=== PATIENT | male | born 1965 | race Two or more races ===

== ENCOUNTER 2016-05-31 04:55 | Inpatient (IN) | payer MEDICAID ==
[~2016-05-31] VITALS: Ht 167.6 cm; Wt 61.7 kg
[~2016-05-31 04:55] MED LIST: ASPI81TA27 PO; ASPI81TA69 PO; ATOR40TA52 PO; BISA-13 PO; CLOP75TA41 PO; GLIM4TAB42 PO; LISI10TA6 PO; MET50T; METF-312 PO; METF-316; METO25TA5 PO; OMEP20CA5 PO; PAR20T; SIMV10TA84
[2016-05-31] MEDS ORDERED: MORPHINE SULFATE 4 MG/ML SYRG ONE (05:41)
[2016-05-31] MEDS ORDERED: ONDANSETRON HCL 4 MG/2 ML VIAL ONE (05:42)
[2016-05-31] MEDS ORDERED: SODIUM CHLORIDE 0.9% 1,000 ML IV ONE (06:00)
[2016-05-31] MEDS ORDERED: MORPHINE SULFATE 4 MG/ML SYRG IV ONE (06:00)
[2016-05-31] MEDS ORDERED: ONDANSETRON HCL 4 MG/2 ML VIAL IV ONE (06:00)
[2016-05-31 06:11] LABS: DEFINITIVE VIEW TRANSMISSION; Hematocrit 51.4 % (41.0-53.0); Hemoglobin 16.6 g/dL (13.5-17.5); Mean Corpuscular Hemoglobin 34.8 pg (28.0-32.0); Mean Corpuscular Hgb Conc. 32.3 g/dL (32.0-36.0); Mean Corpuscular Volume 107.6 fL (80.0-100.0); Mean Platelet Volume 10.1 fL (7.4-10.4); Platelet Count (auto) 220 10^3/uL (140-450); Red Cell Distribution Width 13.5 % (11.6-16.0); SUSPECT VIEW TRANSMISSION; White Blood Cell 12.1 10^3/uL (4.4-10.8)
[2016-05-31 06:32] LABS: BUN/Creatinine Ratio 10.6; Bilirubin, Total 1.7 mg/dL (0.2-1.0); Calcium 9.3 mg/dL (8.5-10.1); Magnesium 2.7 mg/dL (1.6-2.6); Potassium 3.4 mmol/L (3.5-5.1); Total Protein 7.9 g/dL (6.4-8.2)
[2016-05-31 06:35] LABS: Metamyelocytes % 0; Myelocytes % 0; Promyelocytes % 0; Reactive Lymphocytes 0
[2016-05-31] MEDS ORDERED: SODIUM CHLORIDE 0.9% 1,000 ML IVB ONE (06:42)
[2016-05-31] MEDS ORDERED: POTASSIUM CHL 10% (20 MEQ/15ML) ORAL SOLN PO ONE (07:00)
[2016-05-31] MEDS ORDERED: SOD CHL 0.9%/ KCL 40MEQ 1,000 ML IV ONE (07:00)
[2016-05-31 08:00] LABS: Urine Blood TRACE /uL (Negative); Urine Color Brown (Yellow); Urine Mucus FEW (None Seen); Urine Nitrite Negative (Negative); Urine RBC 3 /hpf (0 - 3); Urine Squamous Epithelial Cell FEW /hpf (<5); Urine pH 5.5 (5.0-8.0)
[2016-05-31] MEDS ORDERED: PIPERACILLIN-TAZO 4.5GM 100 ML IV ONE (08:00)
[2016-05-31 08:06] LABS: Urine Glucose 4+ mg/dL (Normal)
[2016-05-31 08:07] LABS: Urine Bilirubin Negative (Negative); Urine Ketone 1+ (Negative)
[2016-05-31] MEDS ORDERED: InsuLIN R (HUMAN) 100 UNITS in SODIUM CHL 0.9% 99 ML IV SCH (08:09)
[2016-05-31] MEDS ORDERED: CLINDAMYCIN 900MG IV 50 ML IV ONE (08:15)
[2016-05-31] MEDS ORDERED: POTASSIUM CHL 20MEQ/100ML 200 ML IV PRN (08:15)
[2016-05-31 08:26] LABS: Macrocytosis Moderate; Platelet Estimate Adequate
[2016-05-31] MEDS ORDERED: InsuLIN REG 1unit/0.01ml Soln (100units/ml) IV ONE ×3 (08:30→13:30)
[2016-05-31 08:44] LABS: INR 1.11 (0.9-1.15); Partial Thromboplastin Time 24.2 sec (22.64-33.71); Prothrombin Time 11.4 sec (9.37-12.3)
[2016-05-31 08:51] LABS: Lactic Acid 7.6 mmol/L (0.4-2.0)
[2016-05-31] MEDS ORDERED: PANTOPRAZOLE SODIUM 40 MG/10 ML VIAL IV ONE (09:15)
[2016-05-31 09:16] LABS: REFLEX LACTIC ACID YES OR NO YES
[2016-05-31] MEDS: SODIUM CHLORIDE 0.9% 1,000 ML IV SCH ×5 (09:20→22:39)
[2016-05-31] MEDS: ACCU-CHEK COMFORT CURVE STRIP VI SCH ×14 (09:21→21:59)
[2016-05-31 09:22] LABS: BUN/Creatinine Ratio 14.6; Calcium 7.9 mg/dL (8.5-10.1); Potassium 4.4 mmol/L (3.5-5.1)
[2016-05-31] MEDS ORDERED: LORazepam 2MG/ML-1ML VIAL IV PRN (09:30)
[2016-05-31] MEDS ORDERED: NITROGLYCERIN 0.4 MG SL TAB SL PRN (09:30)
[2016-05-31] MEDS ORDERED: MORPHINE SULF INJ 2 MG/ML SYRINGE 1ML IV PRN (09:30)
[2016-05-31] MEDS: PANTOPRAZOLE SODIUM 40 MG/10 ML VIAL IV SCH (10:00)
[2016-05-31 10:46] LABS: Lactic Acid 9.3 mmol/L (0.4-2.0)
[2016-05-31 11:11] LABS: REFLEX LACTIC ACID YES OR NO YES
[2016-05-31 11:51] LABS: Hematocrit 38.9 % (41.0-53.0); Hemoglobin 12.7 g/dL (13.5-17.5)
[2016-05-31] MEDS ORDERED: SODIUM CHLORIDE 0.9% 1,000 ML IV SCH (12:09)
[2016-05-31] MEDS: PIPERACILLIN-TAZOB 3.375GM 100 ML IV SCH ×2 (12:13→17:49)
[2016-05-31] MEDS: MORPHINE SULF INJ 2 MG/ML SYRINGE 1ML IV PRN ×2 (12:29→21:45)
[2016-05-31] MEDS: PROMETHAZINE HCL 25 MG/ML 1ML IV PRN (12:30)
[2016-05-31] MEDS: CLINDAMYCIN 600MG IV 50 ML IV SCH ×2 (14:00→21:40)
[2016-05-31 14:23] LABS: BUN/Creatinine Ratio 14.8; Calcium 7.4 mg/dL (8.5-10.1); Potassium 4.7 mmol/L (3.5-5.1)
[2016-05-31 14:24] LABS: Lactic Acid 8.7 mmol/L (0.4-2.0)
[2016-05-31 14:37] LABS: REFLEX LACTIC ACID YES OR NO YES
[2016-05-31 18:14] LABS: Hematocrit 38.5 % (41.0-53.0); Hemoglobin 12.7 g/dL (13.5-17.5)
[2016-05-31 22:00] LABS: BUN/Creatinine Ratio 30.3; Calcium 7.2 mg/dL (8.5-10.1); Potassium 4.1 mmol/L (3.5-5.1)
[2016-05-31] MEDS ORDERED: DEXTROSE (50%) 50ML SYRG IV PRN (22:30)
[2016-05-31 23:25] VITALS: BP 129/80
[2016-06-01] VITALS (7 sets, daily range): BP systolic 111–125; BP diastolic 71–77
[2016-06-01 01:21] LABS: Hematocrit 39.9 % (41.0-53.0); Hemoglobin 13.2 g/dL (13.5-17.5)
[2016-06-01] MEDS: MORPHINE SULF INJ 2 MG/ML SYRINGE 1ML IV PRN ×2 (01:52→16:34)
[2016-06-01] MEDS: ACCU-CHEK COMFORT CURVE STRIP VI SCH ×6 (04:00→20:12)
[2016-06-01] MEDS: InsuLIN REG 1unit/0.01ml Soln (100units/ml) SC SCH ×6 (04:00→20:22)
[2016-06-01] MEDS: PROMETHAZINE HCL 25 MG/ML 1ML IV PRN (04:34)
[2016-06-01] MEDS: CLINDAMYCIN 600MG IV 50 ML IV SCH ×3 (06:12→22:13)
[2016-06-01 06:15] LABS: DEFINITIVE VIEW TRANSMISSION; Hematocrit 40.4 % (41.0-53.0); Hemoglobin 13.3 g/dL (13.5-17.5); Mean Corpuscular Hemoglobin 35.5 pg (28.0-32.0); Mean Corpuscular Volume 107.7 fL (80.0-100.0); Mean Platelet Volume 9.5 fL (7.4-10.4); Platelet Count (auto) 120 10^3/uL (140-450); Red Cell Distribution Width 13.9 % (11.6-16.0); SUSPECT VIEW TRANSMISSION; White Blood Cell 5.2 10^3/uL (4.4-10.8)
[2016-06-01 06:24] LABS: INR 1.12 (0.9-1.15); Partial Thromboplastin Time 27.4 sec (22.64-33.71); Prothrombin Time 11.5 sec (9.37-12.3)
[2016-06-01 06:40] LABS: Myelocytes % 0; Promyelocytes % 0; Reactive Lymphocytes 0
[2016-06-01 06:54] LABS: Albumin 2.7 g/dL (3.4-5.0); BUN/Creatinine Ratio 30.4; Bilirubin, Total 0.7 mg/dL (0.2-1.0); Calcium 7.6 mg/dL (8.5-10.1); Potassium 3.8 mmol/L (3.5-5.1); Total Protein 6.1 g/dL (6.4-8.2)
[2016-06-01 07:51] LABS: Metamyelocytes % 1; Platelet Estimate Decreased
[2016-06-01 07:52] LABS: Macrocytosis Moderate
[2016-06-01] MEDS: PIPERACILLIN-TAZOB 3.375GM 100 ML IV SCH ×4 (08:17→18:02)
[2016-06-01] MEDS: SODIUM CHLORIDE 0.9% 1,000 ML IV SCH ×2 (08:38→18:07)
[2016-06-01] MEDS: MORPHINE SULFATE 4 MG/ML SYRG IV PRN ×3 (08:40→20:11)
[2016-06-01] MEDS: PANTOPRAZOLE SODIUM 40 MG/10 ML VIAL IV SCH (09:49)
[2016-06-01] MEDS ORDERED: BENZOCAINE (DENTAL) 20 % SPRAY 60ML MT ONE (15:30)
[2016-06-01] MEDS ORDERED: BACITRACIN TOP OINT 1 UD PKG TOP ONE (19:00)
[2016-06-02] MEDS: PIPERACILLIN-TAZOB 3.375GM 100 ML IV SCH ×5 (00:08→23:33)
[2016-06-02] MEDS: ACCU-CHEK COMFORT CURVE STRIP VI SCH ×7 (00:16→23:43)
[2016-06-02] MEDS: InsuLIN REG 1unit/0.01ml Soln (100units/ml) SC SCH ×7 (00:20→23:43)
[2016-06-02] MEDS: MORPHINE SULF INJ 2 MG/ML SYRINGE 1ML IV PRN ×6 (00:22→23:42)
[2016-06-02] MEDS: SODIUM CHLORIDE 0.9% 1,000 ML IV SCH ×2 (04:30→14:30)
[2016-06-02 05:03] VITALS: BP 144/85
[2016-06-02] MEDS: CLINDAMYCIN 600MG IV 50 ML IV SCH ×3 (05:18→21:32)
[2016-06-02 08:30] VITALS: BP 124/82
[2016-06-02] MEDS: PANTOPRAZOLE SODIUM 40 MG/10 ML VIAL IV SCH (09:34)
[2016-06-02 10:05] LABS: DEFINITIVE VIEW TRANSMISSION; Hematocrit 37.8 % (41.0-53.0); Hemoglobin 12.2 g/dL (13.5-17.5); Mean Corpuscular Hemoglobin 34.9 pg (28.0-32.0); Mean Corpuscular Hgb Conc. 32.3 g/dL (32.0-36.0); Mean Platelet Volume 9.7 fL (7.4-10.4); Platelet Count (auto) 102 10^3/uL (140-450); Red Cell Distribution Width 13.9 % (11.6-16.0); SUSPECT VIEW TRANSMISSION; White Blood Cell 6.5 10^3/uL (4.4-10.8)
[2016-06-02 10:27] LABS: Albumin 2.3 g/dL (3.4-5.0); BUN/Creatinine Ratio 28.6; Bilirubin, Total 0.6 mg/dL (0.2-1.0); Calcium 7.7 mg/dL (8.5-10.1); Potassium 3.8 mmol/L (3.5-5.1); Total Protein 5.8 g/dL (6.4-8.2)
[2016-06-02 10:45] LABS: Metamyelocytes % 0; Myelocytes % 0; Promyelocytes % 0; Reactive Lymphocytes 0
[2016-06-02 11:55] LABS: Macrocytosis Moderate; Platelet Estimate Decreased
[2016-06-02 13:00] VITALS: BP 108/72
[2016-06-02] MEDS: BACITRACIN TOP OINT 1 UD PKG TOP SCH (16:04)
[2016-06-02 16:30] VITALS: BP 131/78
[2016-06-02 20:00] VITALS: BP 112/71
[2016-06-02] MEDS: MORPHINE SULFATE 4 MG/ML SYRG IV PRN (20:24)
[2016-06-02 21:55] VITALS: BP 112/71
[2016-06-03] MEDS: SODIUM CHLORIDE 0.9% 1,000 ML IV SCH ×3 (00:30→20:23)
[2016-06-03] MEDS: ACCU-CHEK COMFORT CURVE STRIP VI SCH ×6 (03:57→23:42)
[2016-06-03] MEDS: InsuLIN REG 1unit/0.01ml Soln (100units/ml) SC SCH ×6 (03:59→23:43)
[2016-06-03] MEDS: MORPHINE SULF INJ 2 MG/ML SYRINGE 1ML IV PRN ×2 (04:46→08:49)
[2016-06-03 05:00] VITALS: BP 125/82
[2016-06-03] MEDS: CLINDAMYCIN 600MG IV 50 ML IV SCH ×3 (05:32→22:25)
[2016-06-03] MEDS: PIPERACILLIN-TAZOB 3.375GM 100 ML IV SCH ×4 (06:20→23:42)
[2016-06-03 07:29] VITALS: BP 131/83
[2016-06-03] MEDS: PANTOPRAZOLE SODIUM 40 MG/10 ML VIAL IV SCH (10:13)
[2016-06-03] MEDS: BACITRACIN TOP OINT 1 UD PKG TOP SCH (10:13)
[2016-06-03 11:39] VITALS: BP 125/84
[2016-06-03] MEDS: MORPHINE SULFATE 4 MG/ML SYRG IV PRN ×2 (14:57→19:42)
[2016-06-03 16:00] VITALS: BP 119/77
[2016-06-03 19:50] VITALS: BP 116/76
[2016-06-03 21:59] VITALS: BP 116/76
[2016-06-04] MEDS: MORPHINE SULFATE 4 MG/ML SYRG IV PRN ×3 (00:31→20:04)
[2016-06-04] MEDS: ACCU-CHEK COMFORT CURVE STRIP VI SCH ×5 (04:01→19:54)
[2016-06-04] MEDS: InsuLIN REG 1unit/0.01ml Soln (100units/ml) SC SCH ×5 (04:03→19:54)
[2016-06-04 04:49] VITALS: BP 123/71
[2016-06-04] MEDS: CLINDAMYCIN 600MG IV 50 ML IV SCH ×3 (05:44→21:37)
[2016-06-04] MEDS: SODIUM CHLORIDE 0.9% 1,000 ML IV SCH ×2 (05:45→18:10)
[2016-06-04] MEDS: PIPERACILLIN-TAZOB 3.375GM 100 ML IV SCH ×4 (05:45→23:57)
[2016-06-04 07:21] VITALS: BP 92/64
[2016-06-04] MEDS: BACITRACIN TOP OINT 1 UD PKG TOP SCH (08:57)
[2016-06-04] MEDS: PANTOPRAZOLE SODIUM 40 MG/10 ML VIAL IV SCH (08:57)
[2016-06-04 13:10] VITALS: BP 109/70
[2016-06-04 16:16] VITALS: BP 90/57
[2016-06-04 19:50] VITALS: BP 97/62
[2016-06-04 22:00] VITALS: BP 97/62
[2016-06-05] MEDS: ACCU-CHEK COMFORT CURVE STRIP VI SCH ×5 (00:08→22:06)
[2016-06-05] MEDS: InsuLIN REG 1unit/0.01ml Soln (100units/ml) SC SCH ×6 (00:08→22:58)
[2016-06-05] MEDS: SODIUM CHLORIDE 0.9% 1,000 ML IV SCH ×3 (03:29→23:00)
[2016-06-05 05:00] VITALS: BP 106/65
[2016-06-05] MEDS: CLINDAMYCIN 600MG IV 50 ML IV SCH ×3 (05:52→22:05)
[2016-06-05] MEDS: PIPERACILLIN-TAZOB 3.375GM 100 ML IV SCH ×4 (05:53→23:34)
[2016-06-05 09:00] VITALS: BP 102/65
[2016-06-05] MEDS: PANTOPRAZOLE SODIUM 40 MG/10 ML VIAL IV SCH (09:25)
[2016-06-05] MEDS: BACITRACIN TOP OINT 1 UD PKG TOP SCH (09:25)
[2016-06-05 13:51] VITALS: BP 93/65
[2016-06-05 16:18] VITALS: BP 93/60
[2016-06-05 20:00] VITALS: BP 104/63
[2016-06-05 20:25] LABS: Basophils # (auto) 0 uL; Basophils % (auto) 0.2 % (0.0-2.0); DEFINITIVE VIEW TRANSMISSION; Eosinophils # (auto) 0.1 uL; Eosinophils % (auto) 0.6 % (0.0-7.0); Hematocrit 39.8 % (41.0-53.0); Hemoglobin 12.8 g/dL (13.5-17.5); Lymphocytes # (auto) 0.6 uL; Lymphocytes % (auto) 5.6 % (10.0-50.0); Mean Corpuscular Hemoglobin 34.5 pg (28.0-32.0); Mean Corpuscular Hgb Conc. 32.2 g/dL (32.0-36.0); Mean Corpuscular Volume 107.3 fL (80.0-100.0); Mean Platelet Volume 9.3 fL (7.4-10.4); Monocytes # (auto) 1.1 uL; Neutrophils # (auto) 8.2 uL; Neutrophils % (auto) 82.6 % (37.0-80.0); Platelet Count (auto) 280 10^3/uL (140-450); Red Cell Distribution Width 14.6 % (11.6-16.0)
[2016-06-05 21:01] LABS: Albumin 2.4 g/dL (3.4-5.0); BUN/Creatinine Ratio 12.9; Bilirubin, Total 0.9 mg/dL (0.2-1.0); Calcium 8.3 mg/dL (8.5-10.1); Total Protein 6.5 g/dL (6.4-8.2)
[2016-06-05 21:06] LABS: Potassium 2.7 mmol/L (3.5-5.1)
[2016-06-05 22:00] VITALS: BP 104/63
[2016-06-06] MEDS ORDERED: POTASSIUM CHL 20 Meq TABLET PO ONE ×2 (01:15→07:00)
[2016-06-06 05:00] VITALS: BP 96/60
[2016-06-06 06:02] LABS: Basophils # (auto) 0 uL; Basophils % (auto) 0.1 % (0.0-2.0); DEFINITIVE VIEW TRANSMISSION; Eosinophils # (auto) 0.1 uL; Eosinophils % (auto) 0.5 % (0.0-7.0); Hematocrit 33.8 % (41.0-53.0); Hemoglobin 11.1 g/dL (13.5-17.5); Lymphocytes # (auto) 0.4 uL; Lymphocytes % (auto) 4.4 % (10.0-50.0); Mean Corpuscular Hemoglobin 35.1 pg (28.0-32.0); Mean Corpuscular Hgb Conc. 32.8 g/dL (32.0-36.0); Mean Corpuscular Volume 107.2 fL (80.0-100.0); Mean Platelet Volume 9.5 fL (7.4-10.4); Monocytes # (auto) 1.1 uL; Monocytes % (auto) 12.4 % (0.0-12.0); Neutrophils # (auto) 7.6 uL; Neutrophils % (auto) 82.6 % (37.0-80.0); Platelet Count (auto) 303 10^3/uL (140-450); Red Cell Distribution Width 14.8 % (11.6-16.0); White Blood Cell 9.3 10^3/uL (4.4-10.8)
[2016-06-06] MEDS: PIPERACILLIN-TAZOB 3.375GM 100 ML IV SCH ×3 (06:13→18:00)
[2016-06-06] MEDS: CLINDAMYCIN 600MG IV 50 ML IV SCH ×2 (06:13→14:36)
[2016-06-06 06:20] LABS: Calcium 7.8 mg/dL (8.5-10.1)
[2016-06-06 06:23] LABS: BUN/Creatinine Ratio 10.4
[2016-06-06 06:30] LABS: Potassium 2.9 mmol/L (3.5-5.1)
[2016-06-06] MEDS: ACCU-CHEK COMFORT CURVE STRIP VI SCH ×3 (06:57→17:00)
[2016-06-06] MEDS: InsuLIN REG 1unit/0.01ml Soln (100units/ml) SC SCH ×3 (06:57→17:00)
[2016-06-06 07:45] VITALS: BP 99/61
[2016-06-06] MEDS: BACITRACIN TOP OINT 1 UD PKG TOP SCH (10:00)
[2016-06-06] MEDS: PANTOPRAZOLE SODIUM 40 MG/10 ML VIAL IV SCH (11:03)
[2016-06-06] MEDS ORDERED: GASTROGRAFIN 30 ML SOL ONE (11:14)
[2016-06-06 11:50] VITALS: BP 111/72
[2016-06-06 16:00] VITALS: BP 88/55
== END 2016-06-06 19:00 | disposition home or self-care (01) | DRG 246 ==
LOC: ER 04:57 → TELE 04:58 → TELE-WESTW 23:18
PROVIDERS: ADMIT Internal Medicine; ATTEND Internal Medicine
DX: K55.9 Vascular disorder of intestine, unspecified (principal); E13.10 Other specified diabetes mellitus with ketoacidosis without coma; N17.9 Acute kidney failure, unspecified; I95.9 Hypotension, unspecified; K25.4 Chronic or unspecified gastric ulcer with hemorrhage; I25.10 Atherosclerotic heart disease of native coronary artery without angina pectoris; I10 Essential (primary) hypertension; E87.6 Hypokalemia; M43.06 Spondylolysis, lumbar region; F17.210 Nicotine dependence, cigarettes, uncomplicated; F10.20 Alcohol dependence, uncomplicated; R91.8 Other nonspecific abnormal finding of lung field; I25.2 Old myocardial infarction; Z95.5 Presence of coronary angioplasty implant and graft; Z83.3 Family history of diabetes mellitus; Z80.9 Family history of malignant neoplasm, unspecified
CPT/HCPCS: 36415; 51702; 71010; 74176; 80048; 80053; 80061; 81001; 82150; 82378; 82962; 83036; 83605; 83690; 83735; 84484; 85007; 85014; 85018; 85025; 85027; 85045; 85610; 85652; 85730; 86141; 86850; 86900; 86901; 87040; 87081; 87086; 93005; 96361; 96365; 96366; 96367; 96368; 96375; 99291; C9113; G0434; J1815; J2405; J2543; J3480; J3490

== ENCOUNTER 2017-03-26 13:58 | Emergency (ER) | payer MEDICAID ==
[~2017-03-26] VITALS: Ht 160 cm; Wt 54.4 kg
[~2017-03-26 13:58] MED LIST changes: -ASPI81TA27 PO; -BISA-13 PO; -CLOP75TA41 PO; -MET50T; -METF-312 PO; -METF-316; +METF-370 PO; -OMEP20CA5 PO; +OMEP20CA74 PO; -SIMV10TA84
[2017-03-26] MEDS ORDERED: PROCHLORPERAZINE EDISYLATE 5 MG/ML 2ML VIAL IV ONE (15:15)
[2017-03-26 15:59] LABS: Basophils # (auto) 0.1 uL; Basophils % (auto) 0.6 % (0.0-2.0); Eosinophils # (auto) 0 uL; Monocytes # (auto) 0.3 uL; Neutrophils # (auto) 8.9 uL
[2017-03-26 16:01] LABS: Eosinophils % (auto) 0.4 % (0.0-7.0); Hematocrit 44.3 % (41.0-53.0); Hemoglobin 15.6 g/dL (13.5-17.5); Lymphocytes # (auto) 0.7 uL; Mean Corpuscular Hgb Conc. 35.2 g/dL (32.0-36.0); Mean Corpuscular Volume 102.4 fL (80.0-100.0); Mean Platelet Volume 8.5 fL (6.9-10.8); Monocytes % (auto) 3.5 % (0.0-12.0); Neutrophils % (auto) 88.5 % (37.0-80.0); Nucleated Red Blood Cells % 0.1 %; Platelet Count (auto) 194 10^3/uL (140-450); Red Cell Distribution Width 12.4 % (11.8-14.3)
[2017-03-26 16:50] LABS: Anion Gap 13 (5-15); Carbon Dioxide 21 mmol/L (21-32); Chloride 101 mmol/L (98-107); Potassium 4.1 mmol/L (3.5-5.1); Sodium 135 mmol/L (136-145)
[2017-03-26 16:51] LABS: Alkaline Phosphatase 82 U/L (45-117); Aspartate Aminotransferase 20 U/L (15-37); BUN/Creatinine Ratio 11.5; Blood Urea Nitrogen 9 mg/dL (7-18); Calcium 9.2 mg/dL (8.5-10.1); GFR African American 134 mL/min; GFR Non-African American 111 mL/min; Glucose 325 mg/dL (74-106)
[2017-03-26 16:52] LABS: Albumin 3.9 g/dL (3.4-5.0); Bilirubin, Total 0.4 mg/dL (0.2-1.0); Total Protein 8.3 g/dL (6.4-8.2)
[2017-03-26] MEDS ORDERED: ACETAMINOPHEN 325 MG TAB PO PRN (19:00)
[2017-03-26] MEDS ORDERED: DEXTROSE (50%) 50ML SYRG IV PRN (19:00)
[2017-03-26] MEDS ORDERED: SODIUM CHLORIDE 0.9% 1,000 ML IV SCH (19:00)
[2017-03-26] MEDS ORDERED: LABETALOL HCL 5 MG/ML ML 20ML VIAL IV PRN (19:00)
[2017-03-26] MEDS ORDERED: ATORVASTATIN 20 MG TAB PO SCH (22:00)
[2017-03-26] MEDS ORDERED: InsuLIN REG 1unit/0.01ml Soln (100units/ml) SC SCH (22:00)
[2017-03-26] MEDS ORDERED: GABAPENTIN 100 MG CAP PO SCH (22:00)
[2017-03-26] MEDS ORDERED: ACCU-CHEK COMFORT CURVE STRIP VI SCH (22:00)
[2017-03-27 01:15] VITALS: BP 91/55
[2017-03-27] MEDS ORDERED: InsuLIN REG 1unit/0.01ml Soln (100units/ml) SC SCH (07:00)
[2017-03-27] MEDS ORDERED: ASPirin-EC 81 mg tab PO SCH (10:00)
[2017-03-27] MEDS ORDERED: THIAMINE INJ 100 MG, MULTIPLE VITAMIN 10 ML, FOLIC ACID 1 MG, MAGNESIUM SULF SDV 50% 8 ... IV SCH ×5 (12:00)
== END 2017-03-27 01:23 | disposition short-term general hospital (02) ==
LOC: ER 13:58
DX: E11.10 Type 2 diabetes mellitus with ketoacidosis without coma (principal); I69.351 Hemiplegia and hemiparesis following cerebral infarction affecting right dominant side; R42 Dizziness and giddiness; I25.10 Atherosclerotic heart disease of native coronary artery without angina pectoris; I10 Essential (primary) hypertension; E78.5 Hyperlipidemia, unspecified; F17.210 Nicotine dependence, cigarettes, uncomplicated; Z79.82 Long term (current) use of aspirin; Z79.899 Other long term (current) drug therapy; I25.2 Old myocardial infarction
CPT/HCPCS: 36415; 70450; 80053; 82962; 83735; 84484; 85025; 93005; 94761; 96372; 96374; 99285; J0780

== ENCOUNTER 2017-07-01 21:39 | Emergency (ER) | payer MEDICAID ==
[~2017-07-01] VITALS: Ht 157.5 cm; Wt 61.2 kg
[~2017-07-01 21:39] MED LIST changes: -PAR20T; +PAR20T PO
[2017-07-01] MEDS ORDERED: SODIUM CHLORIDE 0.9% 2,000 ML IV ONE (23:00)
[2017-07-01] MEDS ORDERED: SODIUM CHLORIDE 0.9% 1,000 ML IV ONE (23:00)
[2017-07-01] MEDS ORDERED: KETOROLAC TROMETH 30 MG/ML 1ML VIAL IV ONE (23:00)
[2017-07-01 23:02] LABS: Basophils # (auto) 0.1 uL; Eosinophils # (auto) 0.3 uL; Monocytes # (auto) 0.6 uL; Neutrophils # (auto) 3.5 uL; Red Blood Cells 3.88 10^6/uL (4.5-5.90); White Blood Cell 6.5 10^3/uL (4.4-10.8)
[2017-07-01 23:04] LABS: Basophils % (auto) 1.1 % (0.0-2.0); Eosinophils % (auto) 4.6 % (0.0-7.0); Hematocrit 39.4 % (41.0-53.0); Hemoglobin 13.3 g/dL (13.5-17.5); Lymphocytes # (auto) 2.1 uL; Lymphocytes % (auto) 31.8 % (10.0-50.0); Mean Corpuscular Hemoglobin 34.3 pg (28.0-32.0); Mean Corpuscular Hgb Conc. 33.8 g/dL (32.0-36.0); Mean Corpuscular Volume 101.5 fL (80.0-100.0); Monocytes % (auto) 9.3 % (0.0-12.0); Neutrophils % (auto) 53.2 % (37.0-80.0); Nucleated Red Blood Cells % 0.2 %; Platelet Count (auto) 255 10^3/uL (140-450)
[2017-07-01 23:20] LABS: Alanine Aminotransferase 13 U/L (16-61); Albumin 3.3 g/dL (3.4-5.0); Alkaline Phosphatase 68 U/L (45-117); Anion Gap 6 (5-15); Aspartate Aminotransferase 13 U/L (15-37); BUN/Creatinine Ratio 15.9; Bilirubin, Total 0.2 mg/dL (0.2-1.0); Blood Urea Nitrogen 13 mg/dL (7-18); Calcium 8.8 mg/dL (8.5-10.1); Carbon Dioxide 26 mmol/L (21-32); Chloride 107 mmol/L (98-107); GFR African American 127 mL/min; GFR Non-African American 105 mL/min; Glucose 237 mg/dL (74-106); Magnesium 2.3 mg/dL (1.6-2.6); Potassium 4.2 mmol/L (3.5-5.1); Sodium 139 mmol/L (136-145); Total Protein 7.2 g/dL (6.4-8.2)
[2017-07-02 00:57] VITALS: BP 97/56
== END 2017-07-02 02:17 | disposition home or self-care (01) ==
LOC: ER 21:39
DX: E11.40 Type 2 diabetes mellitus with diabetic neuropathy, unspecified (principal); E78.5 Hyperlipidemia, unspecified; F17.210 Nicotine dependence, cigarettes, uncomplicated; I10 Essential (primary) hypertension; I25.2 Old myocardial infarction; R51 Headache; Z86.73 Personal history of transient ischemic attack (TIA), and cerebral infarction without residual deficits
CPT/HCPCS: 36415; 70450; 71045; 80053; 80320; 83735; 83880; 84484; 85025; 93005; 96361; 96374; 99285; J1885

== ENCOUNTER 2017-09-29 14:02 | Inpatient (IN) | payer MEDICAID ==
[~2017-09-29] VITALS: Ht 160 cm; Wt 55.7 kg
[2017-09-29 15:01] LABS: Hemoglobin 15.5 g/dL (13.5-17.5)
[2017-09-29 15:05] LABS: Basophils # (auto) 0.1 uL; Basophils % (auto) 0.4 % (0.0-2.0); Eosinophils # (auto) 0 uL; Eosinophils % (auto) 0.2 % (0.0-7.0); Hematocrit 45.9 % (41.0-53.0); Lymphocytes % (auto) 6.1 % (10.0-50.0); Mean Corpuscular Hemoglobin 33.9 pg (28.0-32.0); Mean Corpuscular Hgb Conc. 33.8 g/dL (32.0-36.0); Mean Corpuscular Volume 100.1 fL (80.0-100.0); Monocytes # (auto) 0.8 uL; Neutrophils # (auto) 14.3 uL; Neutrophils % (auto) 88.3 % (37.0-80.0); Platelet Count (auto) 315 10^3/uL (140-450); Red Blood Cells 4.58 10^6/uL (4.5-5.90); Red Cell Distribution Width 14.1 % (11.8-14.3); White Blood Cell 16.2 10^3/uL (4.4-10.8)
[2017-09-29 15:14] LABS: Alanine Aminotransferase 14 U/L (16-61); Albumin 4.2 g/dL (3.4-5.0); Alkaline Phosphatase 135 U/L (45-117); Anion Gap 10 (5-15); Aspartate Aminotransferase 22 U/L (15-37); BUN/Creatinine Ratio 14.8; Blood Urea Nitrogen 24 mg/dL (7-18); Calcium 9.9 mg/dL (8.5-10.1); Carbon Dioxide 22 mmol/L (21-32); Chloride 104 mmol/L (98-107); GFR African American 58 mL/min; GFR Non-African American 48 mL/min; Glucose 265 mg/dL (74-106); Magnesium 2.4 mg/dL (1.6-2.6); Sodium 136 mmol/L (136-145); Total Protein 9.3 g/dL (6.4-8.2)
[2017-09-29] MEDS ORDERED: ONDANSETRON HCL 4 MG/2 ML VIAL ONE (15:27)
[2017-09-29 15:29] LABS: Potassium 6.5 mmol/L (3.5-5.1)
[2017-09-29] MEDS ORDERED: ONDANSETRON HCL 4 MG/2 ML VIAL IV ONE (15:45)
[2017-09-29] MEDS ORDERED: ALBUTEROL SULF 2.5 MG/0.5ML(0.5%) NEB SOLN NEB STA (15:53)
[2017-09-29] MEDS ORDERED: SODIUM CHLORIDE 0.9% 1,000 ML IV ONE ×2 (15:53)
[2017-09-29] MEDS ORDERED: metroNIDAZOLE 500MG/100ML 100 ML IV ONE (16:00)
[2017-09-29] MEDS ORDERED: DEXTROSE (50%) 50ML SYRG IV ONE (16:00)
[2017-09-29] MEDS ORDERED: PIPERACILLIN-TAZOB 3.375GM 100 ML IV ONE (16:00)
[2017-09-29] MEDS ORDERED: InsuLIN REG 1unit/0.01ml Soln (100units/ml) IV ONE (16:00)
[2017-09-29] MEDS ORDERED: FUROSEMIDE 20 MG/2 ML VIAL IV ONE (16:00)
[2017-09-29] MEDS ORDERED: SODIUM POLYSTYRENE SULF 15GM/60ML SUSP PO ONE (16:00)
[2017-09-29] MEDS ORDERED: CALCIUM GLUC 4.65meq/50ml D5AE 50 ML IV ONE (16:00)
[2017-09-29] MEDS ORDERED: SODIUM BICARBONATE 8.4% INJ 50ML SYRINGE IV ONE (16:00)
[2017-09-29 17:17] LABS: Lactic Acid w/Reflex 4.3 mmol/L (0.4-2.0)
[2017-09-29] MEDS ORDERED: PROMETHAZINE HCL 25 MG/ML 1ML IV ONE (17:30)
[2017-09-29] MEDS ORDERED: NALBUPHINE HCL 10 MG/1ml INJECTION IV ONE (17:30)
[2017-09-29] MEDS ORDERED: SODIUM CHLORIDE 0.9% 1,000 ML IV SCH (18:27)
[2017-09-29] MEDS ORDERED: ONDANSETRON HCL 4 MG/2 ML VIAL IV PRN (18:30)
[2017-09-29] MEDS ORDERED: SODIUM CHLORIDE 0.9% 2,000 ML IV ONE (18:30)
[2017-09-29] MEDS ORDERED: DEXTROSE (50%) 50ML SYRG IV PRN (18:30)
[2017-09-29] MEDS ORDERED: MORPHINE SULFATE 8mg/ml INJ SDV IV PRN (18:30)
[2017-09-29] MEDS ORDERED: NITROGLYCERIN 0.4 MG SL TAB SL PRN (18:30)
[2017-09-29] MEDS ORDERED: COCAINE HCL 4% TOP SOL 4ML TOP ONE (19:00)
[2017-09-29 19:48] LABS: INR 0.95 (0.9-1.15); Partial Thromboplastin Time 28.8 sec (23.78-33.04); Prothrombin Time 10.2 sec (9.27-12.13)
[2017-09-29 20:22] VITALS: BP 146/66
[2017-09-29 20:30] VITALS: BP 146/66
[2017-09-29 20:41] VITALS: BP 146/66
[2017-09-29 20:45] VITALS: BP 146/66
[2017-09-29 21:17] LABS: Calcium 8.2 mg/dL (8.5-10.1)
[2017-09-29] MEDS: ACCU-CHEK COMFORT CURVE STRIP VI SCH (22:00)
[2017-09-29] MEDS: InsuLIN REG 1unit/0.01ml Soln (100units/ml) SC SCH (22:00)
[2017-09-29 22:05] LABS: Lactic Acid w/Reflex 6.1 mmol/L (0.4-2.0)
[2017-09-29] MEDS: metroNIDAZOLE 500MG/100ML 100 ML IV SCH (22:27)
[2017-09-30] VITALS (7 sets, daily range): BP systolic 93–132; BP diastolic 54–80
[2017-09-30] MEDS: PIPERACILLIN-TAZOB 3.375GM 100 ML IV SCH ×5 (01:01→23:44)
[2017-09-30 05:29] LABS: Basophils # (auto) 0 uL; Eosinophils # (auto) 0 uL; Hemoglobin 12.8 g/dL (13.5-17.5); Mean Corpuscular Hemoglobin 34.3 pg (28.0-32.0); Monocytes # (auto) 0.8 uL; Neutrophils # (auto) 8.2 uL; Red Cell Distribution Width 14.2 % (11.8-14.3)
[2017-09-30] MEDS: metroNIDAZOLE 500MG/100ML 100 ML IV SCH ×3 (05:30→20:37)
[2017-09-30 05:31] LABS: Basophils % (auto) 0.2 % (0.0-2.0); Hematocrit 36.6 % (41.0-53.0); Mean Corpuscular Hgb Conc. 34.9 g/dL (32.0-36.0); Mean Corpuscular Volume 98.2 fL (80.0-100.0); Monocytes % (auto) 7.8 % (0.0-12.0); Platelet Count (auto) 216 10^3/uL (140-450); Red Blood Cells 3.73 10^6/uL (4.5-5.90)
[2017-09-30 05:45] LABS: Albumin 2.9 g/dL (3.4-5.0); BUN/Creatinine Ratio 22.3; Bilirubin, Total 0.7 mg/dL (0.2-1.0); Potassium 3.4 mmol/L (3.5-5.1); Total Protein 6.6 g/dL (6.4-8.2)
[2017-09-30] MEDS: InsuLIN REG 1unit/0.01ml Soln (100units/ml) SC SCH ×4 (06:27→21:38)
[2017-09-30] MEDS: ACCU-CHEK COMFORT CURVE STRIP VI SCH ×4 (06:27→21:57)
[2017-09-30] MEDS ORDERED: GASTROGRAFIN 120 ML SOL ONE (09:23)
[2017-09-30] MEDS ORDERED: SOD CHL 0.9%/ KCL 20MEQ 1,000 ML IV SCH (09:30)
[2017-09-30] MEDS ORDERED: VANCOMYCIN PER PHARMACY 0 MG IV SCH (09:30)
[2017-09-30] MEDS: VANCOMYCIN 1GM/250ML 250 ML IV SCH ×2 (10:00→21:36)
[2017-09-30] MEDS: SOD CHL 0.45% WITH 20MEQ KCL 1,000 ML IV SCH ×2 (10:30→17:05)
[2017-09-30 11:44] LABS: Urine Bacteria FEW /hpf (None Seen); Urine Blood 1+ /uL (Negative); Urine WBC 2 /hpf (0 - 3)
[2017-09-30 12:00] LABS: Protein, Urine 43.4 mg/dL (0.0-11.9)
[2017-09-30] MEDS ORDERED: SODIUM BICARBONATE 650 MG TAB ONE (13:10)
[2017-10-01] VITALS (7 sets, daily range): BP systolic 106–138; BP diastolic 66–80
[2017-10-01] MEDS ORDERED: TEMAZEPAM 15 MG CAP PO PRN (00:45)
[2017-10-01] MEDS: SOD CHL 0.45% WITH 20MEQ KCL 1,000 ML IV SCH ×3 (03:10→21:07)
[2017-10-01] MEDS: InsuLIN REG 1unit/0.01ml Soln (100units/ml) SC SCH ×4 (04:45→21:48)
[2017-10-01] MEDS: metroNIDAZOLE 500MG/100ML 100 ML IV SCH ×3 (04:47→21:07)
[2017-10-01] MEDS: PIPERACILLIN-TAZOB 3.375GM 100 ML IV SCH ×4 (04:47→23:10)
[2017-10-01] MEDS: ACCU-CHEK COMFORT CURVE STRIP VI SCH ×4 (04:55→21:49)
[2017-10-01 05:08] LABS: Basophils # (auto) 0 uL; Basophils % (auto) 0.4 % (0.0-2.0); Eosinophils # (auto) 0 uL; Hematocrit 34.8 % (41.0-53.0); Hemoglobin 11.9 g/dL (13.5-17.5); Lymphocytes # (auto) 0.6 uL; Lymphocytes % (auto) 12.8 % (10.0-50.0); Mean Corpuscular Hemoglobin 34.5 pg (28.0-32.0); Mean Corpuscular Hgb Conc. 34.3 g/dL (32.0-36.0); Mean Corpuscular Volume 100.5 fL (80.0-100.0); Monocytes # (auto) 0.5 uL; Monocytes % (auto) 10.3 % (0.0-12.0); Neutrophils # (auto) 3.5 uL; Neutrophils % (auto) 75.5 % (37.0-80.0); Nucleated Red Blood Cells % 0.2 %; Platelet Count (auto) 201 10^3/uL (140-450); Red Blood Cells 3.46 10^6/uL (4.5-5.90); Red Cell Distribution Width 14.2 % (11.8-14.3); White Blood Cell 4.7 10^3/uL (4.4-10.8)
[2017-10-01 05:21] LABS: INR 1.01 (0.9-1.15); Partial Thromboplastin Time 27.5 sec (23.78-33.04); Prothrombin Time 10.8 sec (9.27-12.13)
[2017-10-01 05:31] LABS: Albumin 2.6 g/dL (3.4-5.0); BUN/Creatinine Ratio 26.8; Bilirubin, Total 0.6 mg/dL (0.2-1.0); Calcium 7.5 mg/dL (8.5-10.1); Phosphorus 2.8 mg/dL (2.5-4.90); Potassium 3.9 mmol/L (3.5-5.1); Total Protein 5.9 g/dL (6.4-8.2)
[2017-10-01] MEDS ORDERED: diphenhdrAMINE HCL 50 MG/1 ML VL ONE (08:11)
[2017-10-01] MEDS ORDERED: SODIUM CHLORIDE LOCK 10 ML ONE (08:11)
[2017-10-01] MEDS: VANCOMYCIN 1GM/250ML 250 ML IV SCH ×2 (12:08→21:49)
[2017-10-01] MEDS: fentaNYL CITRATE 100 MCG/2 ML VL ONE ×2 (13:58→14:01)
[2017-10-01] MEDS: MIDAZOLAM HCL 5 MG/ML-1ML VIAL ONE ×2 (13:58→14:01)
[2017-10-02] MEDS: SOD CHL 0.45% WITH 20MEQ KCL 1,000 ML IV SCH ×3 (04:10→20:50)
[2017-10-02 05:00] VITALS: BP 118/77
[2017-10-02] MEDS: metroNIDAZOLE 500MG/100ML 100 ML IV SCH ×3 (05:07→20:25)
[2017-10-02] MEDS: PIPERACILLIN-TAZOB 3.375GM 100 ML IV SCH ×4 (05:16→23:35)
[2017-10-02] MEDS: InsuLIN REG 1unit/0.01ml Soln (100units/ml) SC SCH ×4 (06:03→21:58)
[2017-10-02] MEDS: ACCU-CHEK COMFORT CURVE STRIP VI SCH ×4 (06:04→21:58)
[2017-10-02 06:24] LABS: Basophils # (auto) 0 uL; Basophils % (auto) 0.4 % (0.0-2.0); Eosinophils # (auto) 0.4 uL; Hematocrit 33.7 % (41.0-53.0); Hemoglobin 11.8 g/dL (13.5-17.5); Lymphocytes % (auto) 16.4 % (10.0-50.0); Mean Corpuscular Hemoglobin 34.8 pg (28.0-32.0); Mean Corpuscular Volume 99.3 fL (80.0-100.0); Monocytes # (auto) 0.4 uL; Neutrophils # (auto) 4.1 uL; Neutrophils % (auto) 70.2 % (37.0-80.0); Platelet Count (auto) 209 10^3/uL (140-450); Red Cell Distribution Width 14.2 % (11.8-14.3); White Blood Cell 5.9 10^3/uL (4.4-10.8)
[2017-10-02 06:26] LABS: BUN/Creatinine Ratio 15.7; Calcium 7.5 mg/dL (8.5-10.1); Potassium 3.4 mmol/L (3.5-5.1)
[2017-10-02 08:56] VITALS: BP 119/78
[2017-10-02] MEDS ORDERED: GOLYTELY 4L KIT PO ONE (09:15)
[2017-10-02 10:14] LABS: INR 0.99 (0.9-1.15); Partial Thromboplastin Time 27.1 sec (23.78-33.04); Prothrombin Time 10.6 sec (9.27-12.13)
[2017-10-02] MEDS: VANCOMYCIN 1GM/250ML 250 ML IV SCH ×2 (11:16→21:47)
[2017-10-02 12:48] VITALS: BP 137/80
[2017-10-02] MEDS ORDERED: POTASSIUM CHL 20MEQ/100ML 100 ML IV ONE (15:00)
[2017-10-02 16:57] VITALS: BP 121/68
[2017-10-02 20:00] VITALS: BP 119/91
[2017-10-02 22:00] VITALS: BP 119/91
[2017-10-03] MEDS: metroNIDAZOLE 500MG/100ML 100 ML IV SCH ×3 (04:37→21:56)
[2017-10-03 05:00] VITALS: BP 132/76
[2017-10-03] MEDS: SOD CHL 0.45% WITH 20MEQ KCL 1,000 ML IV SCH ×3 (05:10→21:56)
[2017-10-03] MEDS: PIPERACILLIN-TAZOB 3.375GM 100 ML IV SCH ×3 (05:45→18:17)
[2017-10-03] MEDS: ACCU-CHEK COMFORT CURVE STRIP VI SCH ×4 (06:11→21:57)
[2017-10-03] MEDS: InsuLIN REG 1unit/0.01ml Soln (100units/ml) SC SCH ×4 (06:11→21:56)
[2017-10-03 06:34] LABS: Basophils # (auto) 0 uL; Eosinophils # (auto) 0.3 uL; Lymphocytes % (auto) 18.7 % (10.0-50.0); Nucleated Red Blood Cells % 0.1 %
[2017-10-03 06:37] LABS: Basophils % (auto) 0.8 % (0.0-2.0); Eosinophils % (auto) 5.7 % (0.0-7.0); Hematocrit 32.5 % (41.0-53.0); Hemoglobin 11.3 g/dL (13.5-17.5); Lymphocytes # (auto) 0.9 uL; Mean Corpuscular Hemoglobin 34.4 pg (28.0-32.0); Mean Corpuscular Hgb Conc. 34.8 g/dL (32.0-36.0); Monocytes # (auto) 0.4 uL; Monocytes % (auto) 8.5 % (0.0-12.0); Neutrophils # (auto) 3.3 uL; Neutrophils % (auto) 66.3 % (37.0-80.0); Platelet Count (auto) 237 10^3/uL (140-450); Red Blood Cells 3.29 10^6/uL (4.5-5.90); Red Cell Distribution Width 13.5 % (11.8-14.3)
[2017-10-03 06:45] LABS: BUN/Creatinine Ratio 6.3; Calcium 7.3 mg/dL (8.5-10.1); Potassium 4.1 mmol/L (3.5-5.1)
[2017-10-03 09:00] VITALS: BP 141/86
[2017-10-03] MEDS: VANCOMYCIN 1GM/250ML 250 ML IV SCH ×2 (10:04→21:56)
[2017-10-03] MEDS ORDERED: MORPHINE SULF INJ 2 MG/ML SYRINGE 1ML ONE (10:46)
[2017-10-03 12:00] VITALS: BP 127/83
[2017-10-03 17:00] VITALS: BP 101/68
[2017-10-03 20:00] VITALS: BP 124/67
[2017-10-03 22:00] VITALS: BP 124/67
[2017-10-04] MEDS: PIPERACILLIN-TAZOB 3.375GM 100 ML IV SCH ×4 (00:23→18:00)
[2017-10-04] MEDS: metroNIDAZOLE 500MG/100ML 100 ML IV SCH ×3 (05:14→21:21)
[2017-10-04 05:25] VITALS: BP 116/69
[2017-10-04 05:48] LABS: Basophils # (auto) 0 uL; Monocytes # (auto) 0.6 uL; Neutrophils # (auto) 3.8 uL
[2017-10-04 05:51] LABS: Basophils % (auto) 0.7 % (0.0-2.0); Eosinophils # (auto) 0.2 uL; Eosinophils % (auto) 4.1 % (0.0-7.0); Hematocrit 34.8 % (41.0-53.0); Hemoglobin 12.2 g/dL (13.5-17.5); Lymphocytes % (auto) 18.3 % (10.0-50.0); Mean Corpuscular Hgb Conc. 35.2 g/dL (32.0-36.0); Mean Corpuscular Volume 98.2 fL (80.0-100.0); Monocytes % (auto) 10.4 % (0.0-12.0); Neutrophils % (auto) 66.5 % (37.0-80.0); Platelet Count (auto) 265 10^3/uL (140-450); Red Blood Cells 3.54 10^6/uL (4.5-5.90); Red Cell Distribution Width 13.7 % (11.8-14.3); White Blood Cell 5.7 10^3/uL (4.4-10.8)
[2017-10-04 05:53] LABS: Mean Corpuscular Hemoglobin 34.4 pg (28.0-32.0)
[2017-10-04 06:32] LABS: Albumin 2.7 g/dL (3.4-5.0); BUN/Creatinine Ratio 6.1; Bilirubin, Total 0.5 mg/dL (0.2-1.0); Total Protein 5.9 g/dL (6.4-8.2)
[2017-10-04] MEDS: InsuLIN REG 1unit/0.01ml Soln (100units/ml) SC SCH ×4 (07:00→22:08)
[2017-10-04] MEDS: SOD CHL 0.45% WITH 20MEQ KCL 1,000 ML IV SCH ×3 (07:08→22:08)
[2017-10-04] MEDS: ACCU-CHEK COMFORT CURVE STRIP VI SCH ×4 (07:08→22:02)
[2017-10-04 07:19] LABS: Potassium 2.9 mmol/L (3.5-5.1)
[2017-10-04 09:00] VITALS: BP 107/69
[2017-10-04] MEDS: VANCOMYCIN 1GM/250ML 250 ML IV SCH ×2 (09:47→22:01)
[2017-10-04] MEDS ORDERED: POTASSIUM CHLORIDE 60 MEQ, LIDOCAINE 1% (LOCAL ANESTH.) 6 ML in SODIUM CHL 0.9% 500 ML IV ONE (11:15)
[2017-10-04] MEDS ORDERED: POVIDONE IODINE 10 % TOPICAL OINT 30GM TOP ONE (12:02)
[2017-10-04 17:00] VITALS: BP 146/80
[2017-10-04] MEDS: POTASSIUM CHL 20MEQ/100ML 100 ML IV SCH ×2 (18:32→19:38)
[2017-10-04 21:41] VITALS: BP 141/75
[2017-10-05] MEDS: POTASSIUM CHL 20MEQ/100ML 100 ML IV SCH ×2 (00:12→03:40)
[2017-10-05] MEDS: PIPERACILLIN-TAZOB 3.375GM 100 ML IV SCH ×4 (00:13→17:32)
[2017-10-05] MEDS ORDERED: POTASSIUM CHL 20MEQ/100ML 100 ML IV ONE (03:00)
[2017-10-05] MEDS: metroNIDAZOLE 500MG/100ML 100 ML IV SCH ×3 (05:13→20:34)
[2017-10-05 05:22] VITALS: BP 138/81
[2017-10-05] MEDS: ACCU-CHEK COMFORT CURVE STRIP VI SCH ×4 (06:15→21:46)
[2017-10-05] MEDS: SOD CHL 0.45% WITH 20MEQ KCL 1,000 ML IV SCH ×3 (06:23→23:50)
[2017-10-05] MEDS: InsuLIN REG 1unit/0.01ml Soln (100units/ml) SC SCH ×4 (06:23→21:59)
[2017-10-05 08:47] VITALS: BP 135/79
[2017-10-05] MEDS: VANCOMYCIN 1GM/250ML 250 ML IV SCH ×2 (09:53→21:46)
[2017-10-05 13:08] VITALS: BP 156/83
[2017-10-05 16:52] VITALS: BP 112/69
[2017-10-05] MEDS: POTASSIUM CHL 20 Meq TABLET PO SCH (21:46)
[2017-10-05 22:00] VITALS: BP 137/76
[2017-10-06] MEDS: PIPERACILLIN-TAZOB 3.375GM 100 ML IV SCH ×3 (00:08→11:37)
[2017-10-06] MEDS: SOD CHL 0.45% WITH 20MEQ KCL 1,000 ML IV SCH (04:16)
[2017-10-06 05:00] VITALS: BP 142/84
[2017-10-06] MEDS: metroNIDAZOLE 500MG/100ML 100 ML IV SCH (05:09)
[2017-10-06 06:35] LABS: Potassium 3.8 mmol/L (3.5-5.1)
[2017-10-06 06:45] LABS: Albumin 2.7 g/dL (3.4-5.0); BUN/Creatinine Ratio 5.4; Calcium 8.4 mg/dL (8.5-10.1)
[2017-10-06] MEDS: ACCU-CHEK COMFORT CURVE STRIP VI SCH ×2 (06:45→11:38)
[2017-10-06 06:50] LABS: Bilirubin, Total 0.3 mg/dL (0.2-1.0); Total Protein 6.1 g/dL (6.4-8.2)
[2017-10-06] MEDS: InsuLIN REG 1unit/0.01ml Soln (100units/ml) SC SCH ×2 (07:02→11:38)
[2017-10-06 08:33] VITALS: BP 143/83
[2017-10-06] MEDS: VANCOMYCIN 1GM/250ML 250 ML IV SCH (10:21)
[2017-10-06] MEDS: POTASSIUM CHL 20 Meq TABLET PO SCH (10:21)
[2017-10-06 12:23] VITALS: BP 141/79
[2017-10-06 14:07] VITALS: BP 141/79
== END 2017-10-06 15:15 | disposition home or self-care (01) | DRG 720 ==
LOC: ER 14:02 → OVERFLOW 14:03 → DOU IN ICU 20:00 → TELE-WESTW 10-01 17:51
PROVIDERS: ADMIT Internal Medicine; ATTEND Internal Medicine Pulmonary Disease
PROC: 0DBE8ZX Excision of Large Intestine, Via Natural or Artificial Opening Endoscopic, Diagnostic (ICD-10-PCS; principal; 2017-10-01 13:50)
DX: A41.9 Sepsis, unspecified organism (principal); N17.0 Acute kidney failure with tubular necrosis; K56.699 Other intestinal obstruction unspecified as to partial versus complete obstruction; E44.0 Moderate protein-calorie malnutrition; E87.2 Acidosis; N18.3 Chronic kidney disease, stage 3 (moderate); E11.21 Type 2 diabetes mellitus with diabetic nephropathy; E11.51 Type 2 diabetes mellitus with diabetic peripheral angiopathy without gangrene; E78.5 Hyperlipidemia, unspecified; E86.0 Dehydration; I25.5 Ischemic cardiomyopathy; I70.0 Atherosclerosis of aorta; E87.6 Hypokalemia; F17.210 Nicotine dependence, cigarettes, uncomplicated; I25.10 Atherosclerotic heart disease of native coronary artery without angina pectoris; K57.30 Diverticulosis of large intestine without perforation or abscess without bleeding; E11.22 Type 2 diabetes mellitus with diabetic chronic kidney disease; K21.9 Gastro-esophageal reflux disease without esophagitis; M19.90 Unspecified osteoarthritis, unspecified site; K64.8 Other hemorrhoids; K76.0 Fatty (change of) liver, not elsewhere classified; E87.5 Hyperkalemia; F32.9 Major depressive disorder, single episode, unspecified; I12.9 Hypertensive chronic kidney disease with stage 1 through stage 4 chronic kidney disease, or unspecified chronic kidney disease; Z86.73 Personal history of transient ischemic attack (TIA), and cerebral infarction without residual deficits; Z68.21 Body mass index [BMI] 21.0-21.9, adult; I25.2 Old myocardial infarction; Z83.3 Family history of diabetes mellitus; Z79.899 Other long term (current) drug therapy; Z71.89 Other specified counseling; Z80.8 Family history of malignant neoplasm of other organs or systems; Z71.3 Dietary counseling and surveillance
CPT/HCPCS: 36415; 45380; 71045; 71046; 74176; 74250; 80048; 80053; 80202; 81001; 82570; 82962; 83036; 83605; 83735; 84100; 84132; 84156; 84300; 84484; 85025; 85610; 85730; 86850; 86900; 86901; 87040; 87081; 93005; 93306; 94640; 96365; 96367; 96368; 96375; 97163; 99152; J0610; J1815; J2250; J2405; J2543; J3480; J3490

== ENCOUNTER 2017-12-13 12:23 | Inpatient (IN) | payer MEDICAID ==
[~2017-12-13] VITALS: Ht 160 cm; Wt 53.5 kg
[~2017-12-13 12:23] MED LIST changes: -ASPI81TA69 PO; +FER325T PO; +LEVO750T64 PO; -LISI10TA6 PO; +LISI2.5T47 PO; +NIC21P TD; -OMEP20CA74 PO; +PANT40T PO
[2017-12-13] MEDS ORDERED: PIPERACILLIN-TAZOB 3.375GM 100 ML IV ONE (13:15)
[2017-12-13 13:58] LABS: Basophils # (auto) 0 uL; Basophils % (auto) 0.2 % (0.0-2.0); Eosinophils # (auto) 0 uL; Eosinophils % (auto) 0.1 % (0.0-7.0); Hematocrit 31.3 % (41.0-53.0); Hemoglobin 10.3 g/dL (13.5-17.5); Lymphocytes # (auto) 0.9 uL; Lymphocytes % (auto) 5.5 % (10.0-50.0); Mean Corpuscular Hemoglobin 30.8 pg (28.0-32.0); Mean Corpuscular Hgb Conc. 32.9 g/dL (32.0-36.0); Mean Corpuscular Volume 93.7 fL (80.0-100.0); Monocytes # (auto) 1.2 uL; Neutrophils # (auto) 14.4 uL; Neutrophils % (auto) 87.2 % (37.0-80.0); Platelet Count (auto) 395 10^3/uL (140-450); Red Blood Cells 3.34 10^6/uL (4.5-5.90); Red Cell Distribution Width 15.7 % (11.8-14.3); White Blood Cell 16.5 10^3/uL (4.4-10.8)
[2017-12-13 14:15] LABS: Albumin 3.2 g/dL (3.4-5.0); BUN/Creatinine Ratio 12.2; Calcium 9.4 mg/dL (8.5-10.1)
[2017-12-13 14:28] LABS: Bilirubin, Total 0.4 mg/dL (0.2-1.0); Total Protein 9.3 g/dL (6.4-8.2)
[2017-12-13] MEDS ORDERED: VANCOMYCIN PER PHARMACY 0 MG IV SCH (14:45)
[2017-12-13] MEDS ORDERED: DEXTROSE (50%) 50ML SYRG IV PRN (14:45)
[2017-12-13] MEDS ORDERED: LORazepam 0.5 MG TAB PO PRN (14:45)
[2017-12-13] MEDS ORDERED: ACETAMINOPHEN 500 MG TAB PO PRN (14:45)
[2017-12-13] MEDS ORDERED: TEMAZEPAM 15 MG CAP PO PRN (14:45)
[2017-12-13] MEDS ORDERED: MORPHINE SULF INJ 2 MG/ML SYRINGE 1ML IV PRN ×2 (14:45)
[2017-12-13] MEDS ORDERED: LACTULOSE 20Gm/30ML SOLN PO PRN (14:45)
[2017-12-13] MEDS ORDERED: NITROGLYCERIN 0.4 MG SL TAB SL PRN (14:45)
[2017-12-13] MEDS: SODIUM CHLORIDE 0.9% 1,000 ML IV SCH (15:08)
[2017-12-13 15:12] LABS: INR 1.03 (0.9-1.15)
[2017-12-13] MEDS ORDERED: VANCOMYCIN 1GM/250ML 250 ML IV ONE (16:00)
[2017-12-13] MEDS: ACCU-CHEK COMFORT CURVE STRIP VI SCH ×2 (17:00→21:35)
[2017-12-13] MEDS: InsuLIN REG 1unit/0.01ml Soln (100units/ml) SC SCH ×2 (17:00→21:34)
[2017-12-13] MEDS: HYDROcodone-ACET 5/325MG TAB PO PRN (19:02)
[2017-12-13] MEDS: PROMETHAZINE HCL 25 MG/ML 1ML IV PRN (19:32)
[2017-12-13 20:00] VITALS: BP_SYST 118; BP_SYST 90; BP_DIAS 54; BP_DIAS 72
[2017-12-13 21:00] VITALS: BP 118/72
[2017-12-13] MEDS: PIPERACILLIN-TAZOB 3.375GM 100 ML IV SCH (21:17)
[2017-12-13] MEDS ORDERED: INSREG3 SUBCUT (21:40)
[2017-12-13 22:05] VITALS: BP 90/54
[2017-12-14] MEDS: SODIUM CHLORIDE 0.9% 1,000 ML IV SCH (00:42)
[2017-12-14] MEDS: PIPERACILLIN-TAZOB 3.375GM 100 ML IV SCH ×4 (01:15→18:12)
[2017-12-14 05:03] VITALS: BP 120/66
[2017-12-14] MEDS: ACCU-CHEK COMFORT CURVE STRIP VI SCH ×4 (06:26→21:26)
[2017-12-14] MEDS: InsuLIN REG 1unit/0.01ml Soln (100units/ml) SC SCH ×4 (06:26→21:26)
[2017-12-14 07:14] LABS: Basophils # (auto) 0 uL; Basophils % (auto) 0.4 % (0.0-2.0); Eosinophils # (auto) 0.2 uL; Eosinophils % (auto) 1.3 % (0.0-7.0); Hematocrit 31.2 % (41.0-53.0); Hemoglobin 10.5 g/dL (13.5-17.5); Lymphocytes # (auto) 0.9 uL; Lymphocytes % (auto) 7.3 % (10.0-50.0); Mean Corpuscular Hemoglobin 31.8 pg (28.0-32.0); Mean Corpuscular Hgb Conc. 33.7 g/dL (32.0-36.0); Mean Corpuscular Volume 94.3 fL (80.0-100.0); Neutrophils # (auto) 10.4 uL; Nucleated Red Blood Cells % 0.2 %; Platelet Count (auto) 382 10^3/uL (140-450); Red Cell Distribution Width 15.8 % (11.8-14.3); White Blood Cell 12.6 10^3/uL (4.4-10.8)
[2017-12-14 07:43] LABS: Albumin 2.7 g/dL (3.4-5.0); BUN/Creatinine Ratio 12.2; Calcium 8.9 mg/dL (8.5-10.1); Potassium 5.3 mmol/L (3.5-5.1)
[2017-12-14 07:56] LABS: Bilirubin, Total 0.7 mg/dL (0.2-1.0); Total Protein 7.9 g/dL (6.4-8.2)
[2017-12-14 09:00] VITALS: BP 113/73
[2017-12-14] MEDS: PANTOPRAZOLE 40 MG TAB PO SCH (09:39)
[2017-12-14] MEDS ORDERED: SOD CHL 0.45% 1,000 ML IV ONE (10:45)
[2017-12-14] MEDS ORDERED: METOPROLOL TARTRATE 25 MG TAB PO ONE (11:00)
[2017-12-14] MEDS ORDERED: PARoxetine 20 MG TAB PO ONE (11:00)
[2017-12-14] MEDS: VANCOMYCIN 1GM/250ML 250 ML IV SCH ×2 (11:29→23:01)
[2017-12-14] MEDS ORDERED: IOHEXOL 350 MG/ML 100ML IJ ONE (11:41)
[2017-12-14 13:00] VITALS: BP 115/70
[2017-12-14] MEDS: PROMETHAZINE HCL 25 MG/ML 1ML IV PRN (13:49)
[2017-12-14 17:00] VITALS: BP 102/64
[2017-12-14] MEDS: HYDROcodone-ACET 5/325MG TAB PO PRN (20:12)
[2017-12-14] MEDS: METOPROLOL TARTRATE 25 MG TAB PO SCH (21:32)
[2017-12-14 21:40] LABS: Urine Bacteria NONE SEEN /hpf (None Seen); Urine Blood Negative /uL (Negative); Urine Specific Gravity 1.031 (1.001-1.035); Urine WBC 5 /hpf (0 - 3)
[2017-12-14 22:00] VITALS: BP 103/60
[2017-12-14] MEDS: SILVER SULFADIAZINE 1 % TOPICAL CREAM 50GM TOP SCH (22:00)
[2017-12-14] MEDS: DAKINS QUARTER STR 0.125% (NaHypochlorite) 473 ML TOPICAL SOL TOP SCH (22:00)
[2017-12-15] MEDS: PIPERACILLIN-TAZOB 3.375GM 100 ML IV SCH ×4 (00:35→17:56)
[2017-12-15 05:14] VITALS: BP 89/52
[2017-12-15 06:59] LABS: Basophils # (auto) 0 uL; Basophils % (auto) 0.5 % (0.0-2.0); Eosinophils # (auto) 0.2 uL; Eosinophils % (auto) 2.1 % (0.0-7.0); Hematocrit 31.2 % (41.0-53.0); Hemoglobin 10.4 g/dL (13.5-17.5); Lymphocytes # (auto) 0.8 uL; Lymphocytes % (auto) 10.3 % (10.0-50.0); Mean Corpuscular Hemoglobin 31.6 pg (28.0-32.0); Mean Corpuscular Hgb Conc. 33.3 g/dL (32.0-36.0); Mean Corpuscular Volume 94.9 fL (80.0-100.0); Monocytes # (auto) 0.6 uL; Monocytes % (auto) 7.2 % (0.0-12.0); Neutrophils # (auto) 6.4 uL; Neutrophils % (auto) 79.9 % (37.0-80.0); Nucleated Red Blood Cells % 0.1 %; Platelet Count (auto) 427 10^3/uL (140-450); Red Blood Cells 3.28 10^6/uL (4.5-5.90); Red Cell Distribution Width 15.7 % (11.8-14.3); White Blood Cell 8.1 10^3/uL (4.4-10.8)
[2017-12-15] MEDS: InsuLIN REG 1unit/0.01ml Soln (100units/ml) SC SCH ×4 (07:00→22:13)
[2017-12-15] MEDS: ACCU-CHEK COMFORT CURVE STRIP VI SCH ×4 (07:06→22:14)
[2017-12-15 07:27] LABS: Albumin 2.5 g/dL (3.4-5.0); BUN/Creatinine Ratio 9.2; Bilirubin, Total 0.3 mg/dL (0.2-1.0); Calcium 8.9 mg/dL (8.5-10.1); Total Protein 8.1 g/dL (6.4-8.2)
[2017-12-15 09:00] VITALS: BP 106/59
[2017-12-15] MEDS: ZINC SULFATE 220mg CAP or TAB PO SCH (10:34)
[2017-12-15] MEDS: PARoxetine 20 MG TAB PO SCH (10:34)
[2017-12-15] MEDS: ASCORBIC ACID 500 MG TAB PO SCH (10:34)
[2017-12-15] MEDS: PANTOPRAZOLE 40 MG TAB PO SCH (10:35)
[2017-12-15] MEDS: METOPROLOL TARTRATE 25 MG TAB PO SCH ×2 (10:37→22:00)
[2017-12-15] MEDS: VANCOMYCIN 1GM/250ML 250 ML IV SCH ×2 (11:07→23:00)
[2017-12-15] MEDS: SILVER SULFADIAZINE 1 % TOPICAL CREAM 50GM TOP SCH ×2 (11:11→22:13)
[2017-12-15] MEDS: DAKINS QUARTER STR 0.125% (NaHypochlorite) 473 ML TOPICAL SOL TOP SCH ×2 (11:11→22:13)
[2017-12-15 13:00] VITALS: BP 104/58
[2017-12-15 17:00] VITALS: BP 101/51
[2017-12-15 22:00] VITALS: BP 94/52
[2017-12-15] MEDS: HYDROcodone-ACET 5/325MG TAB PO PRN (22:15)
[2017-12-16] MEDS: PIPERACILLIN-TAZOB 3.375GM 100 ML IV SCH ×2 (00:01→05:45)
[2017-12-16 05:00] VITALS: BP 88/53
[2017-12-16] MEDS: InsuLIN REG 1unit/0.01ml Soln (100units/ml) SC SCH ×4 (05:45→22:38)
[2017-12-16] MEDS: ACCU-CHEK COMFORT CURVE STRIP VI SCH ×4 (05:45→22:38)
[2017-12-16 08:37] LABS: Basophils # (auto) 0.1 uL; Eosinophils # (auto) 0.2 uL; Hemoglobin 9.3 g/dL (13.5-17.5); Monocytes # (auto) 0.6 uL; Red Cell Distribution Width 15.5 % (11.8-14.3)
[2017-12-16 08:39] LABS: Basophils % (auto) 0.7 % (0.0-2.0); Eosinophils % (auto) 1.8 % (0.0-7.0); Hematocrit 27.6 % (41.0-53.0); Lymphocytes # (auto) 1.2 uL; Lymphocytes % (auto) 11.6 % (10.0-50.0); Mean Corpuscular Hemoglobin 31.5 pg (28.0-32.0); Mean Corpuscular Hgb Conc. 33.6 g/dL (32.0-36.0); Mean Corpuscular Volume 93.7 fL (80.0-100.0); Monocytes % (auto) 5.7 % (0.0-12.0); Neutrophils # (auto) 8.3 uL; Neutrophils % (auto) 80.2 % (37.0-80.0); Platelet Count (auto) 519 10^3/uL (140-450); Red Blood Cells 2.95 10^6/uL (4.5-5.90); White Blood Cell 10.4 10^3/uL (4.4-10.8)
[2017-12-16 08:48] LABS: BUN/Creatinine Ratio 8.3; Calcium 9.3 mg/dL (8.5-10.1); Potassium 4.6 mmol/L (3.5-5.1)
[2017-12-16 09:00] VITALS: BP 102/67
[2017-12-16] MEDS: PARoxetine 20 MG TAB PO SCH (10:40)
[2017-12-16] MEDS: PANTOPRAZOLE 40 MG TAB PO SCH (10:40)
[2017-12-16] MEDS: ZINC SULFATE 220mg CAP or TAB PO SCH (10:40)
[2017-12-16] MEDS: ASCORBIC ACID 500 MG TAB PO SCH (10:40)
[2017-12-16] MEDS: METOPROLOL TARTRATE 25 MG TAB PO SCH ×2 (10:41→21:20)
[2017-12-16] MEDS: SILVER SULFADIAZINE 1 % TOPICAL CREAM 50GM TOP SCH ×2 (10:44→22:38)
[2017-12-16] MEDS: DAKINS QUARTER STR 0.125% (NaHypochlorite) 473 ML TOPICAL SOL TOP SCH ×2 (10:44→22:38)
[2017-12-16] MEDS ORDERED: VANCOMYCIN 750 MG in D5W 5% 250 ML IV SCH (12:00)
[2017-12-16] MEDS: ceFAZolin 1GM/50ML 50 ML IV SCH ×2 (12:44→17:30)
[2017-12-16 13:10] VITALS: BP 106/59
[2017-12-16 17:00] VITALS: BP 101/61
[2017-12-16] MEDS: HYDROcodone-ACET 5/325MG TAB PO PRN (21:24)
[2017-12-17] MEDS: ceFAZolin 1GM/50ML 50 ML IV SCH ×4 (00:32→17:39)
[2017-12-17 04:20] VITALS: BP 112/69
[2017-12-17 05:00] VITALS: BP 88/54
[2017-12-17 06:20] VITALS: BP 130/69
[2017-12-17] MEDS: InsuLIN REG 1unit/0.01ml Soln (100units/ml) SC SCH ×4 (06:23→22:31)
[2017-12-17] MEDS: ACCU-CHEK COMFORT CURVE STRIP VI SCH ×3 (06:23→22:30)
[2017-12-17 08:45] LABS: Basophils # (auto) 0.1 uL; Basophils % (auto) 0.5 % (0.0-2.0); Hemoglobin 11.2 g/dL (13.5-17.5); Monocytes # (auto) 0.5 uL; Neutrophils # (auto) 9.3 uL
[2017-12-17 08:49] LABS: Eosinophils # (auto) 0.1 uL; Eosinophils % (auto) 1.1 % (0.0-7.0); Hematocrit 34.4 % (41.0-53.0); Lymphocytes # (auto) 1.1 uL; Lymphocytes % (auto) 9.7 % (10.0-50.0); Mean Corpuscular Hemoglobin 32.1 pg (28.0-32.0); Mean Corpuscular Hgb Conc. 32.7 g/dL (32.0-36.0); Mean Corpuscular Volume 98.2 fL (80.0-100.0); Monocytes % (auto) 4.7 % (0.0-12.0); Platelet Count (auto) 561 10^3/uL (140-450); Red Cell Distribution Width 16.4 % (11.8-14.3); White Blood Cell 11.1 10^3/uL (4.4-10.8)
[2017-12-17 08:56] VITALS: BP 115/71
[2017-12-17 08:58] LABS: INR 0.99 (0.9-1.15); Partial Thromboplastin Time 28.7 sec (23.78-33.04); Prothrombin Time 10.6 sec (9.27-12.13)
[2017-12-17 09:11] LABS: BUN/Creatinine Ratio 10.2; Calcium 9.4 mg/dL (8.5-10.1); Potassium 4.7 mmol/L (3.5-5.1)
[2017-12-17] MEDS ORDERED: IODIXANOL 320MG/ML 100ML BTL IV ONE (09:11)
[2017-12-17] MEDS ORDERED: LIDOCAINE 2%HCL (LOCAL ANESTH.) INJ 10ml MDV ONE (09:11)
[2017-12-17] MEDS ORDERED: MIDAZOLAM HCL 1MG/1ML-2 ML VIAL ONE ×2 (09:29→12:58)
[2017-12-17] MEDS ORDERED: ANGIOMAX 250 MG VIAL IV ONE ×2 (09:29→11:24)
[2017-12-17] MEDS ORDERED: SODIUM CHL 0.9% 50 ML ONE ×2 (09:29→11:24)
[2017-12-17] MEDS ORDERED: fentaNYL CITRATE 100 MCG/2 ML VL ONE ×2 (09:29→12:55)
[2017-12-17] MEDS: SILVER SULFADIAZINE 1 % TOPICAL CREAM 50GM TOP SCH ×2 (10:00→22:30)
[2017-12-17] MEDS: DAKINS QUARTER STR 0.125% (NaHypochlorite) 473 ML TOPICAL SOL TOP SCH ×2 (10:00→22:30)
[2017-12-17] MEDS ORDERED: D5W/SOD CHL 0.45% 1,000 ML IV ONE (10:30)
[2017-12-17] MEDS: ASCORBIC ACID 500 MG TAB PO SCH (15:32)
[2017-12-17] MEDS: METOPROLOL TARTRATE 25 MG TAB PO SCH ×2 (15:33→22:30)
[2017-12-17] MEDS: PARoxetine 20 MG TAB PO SCH (15:34)
[2017-12-17] MEDS: PANTOPRAZOLE 40 MG TAB PO SCH (15:34)
[2017-12-17] MEDS: ZINC SULFATE 220mg CAP or TAB PO SCH (15:34)
[2017-12-17 17:00] VITALS: BP 96/51
[2017-12-17 22:00] VITALS: BP 106/62
[2017-12-18] MEDS: ceFAZolin 1GM/50ML 50 ML IV SCH ×5 (00:40→23:55)
[2017-12-18 05:00] VITALS: BP 92/55
[2017-12-18] MEDS: ACCU-CHEK COMFORT CURVE STRIP VI SCH ×4 (06:07→21:48)
[2017-12-18] MEDS: InsuLIN REG 1unit/0.01ml Soln (100units/ml) SC SCH ×4 (06:07→21:54)
[2017-12-18 07:08] LABS: Eosinophils # (auto) 0.1 uL; Hemoglobin 8.5 g/dL (13.5-17.5); Lymphocytes # (auto) 0.9 uL; Neutrophils # (auto) 10.4 uL
[2017-12-18 07:12] LABS: Basophils # (auto) 0 uL; Basophils % (auto) 0.3 % (0.0-2.0); Eosinophils % (auto) 0.7 % (0.0-7.0); Hematocrit 25.9 % (41.0-53.0); Lymphocytes % (auto) 7.2 % (10.0-50.0); Mean Corpuscular Hemoglobin 31.1 pg (28.0-32.0); Mean Corpuscular Hgb Conc. 32.8 g/dL (32.0-36.0); Mean Corpuscular Volume 94.9 fL (80.0-100.0); Monocytes # (auto) 0.6 uL; Monocytes % (auto) 4.7 % (0.0-12.0); Neutrophils % (auto) 87.1 % (37.0-80.0); Platelet Count (auto) 487 10^3/uL (140-450); Red Blood Cells 2.73 10^6/uL (4.5-5.90); Red Cell Distribution Width 15.2 % (11.8-14.3)
[2017-12-18 07:14] LABS: Calcium 8.8 mg/dL (8.5-10.1); Potassium 4.7 mmol/L (3.5-5.1)
[2017-12-18 07:15] LABS: BUN/Creatinine Ratio 15.5
[2017-12-18 09:00] VITALS: BP 87/53
[2017-12-18] MEDS: METOPROLOL TARTRATE 25 MG TAB PO SCH ×2 (10:00→21:48)
[2017-12-18] MEDS: PANTOPRAZOLE 40 MG TAB PO SCH (10:07)
[2017-12-18] MEDS: PARoxetine 20 MG TAB PO SCH (10:07)
[2017-12-18] MEDS: ZINC SULFATE 220mg CAP or TAB PO SCH (10:09)
[2017-12-18] MEDS: ASCORBIC ACID 500 MG TAB PO SCH (10:09)
[2017-12-18 13:00] VITALS: BP 96/61
[2017-12-18] MEDS: DAKINS QUARTER STR 0.125% (NaHypochlorite) 473 ML TOPICAL SOL TOP SCH ×2 (13:27→21:53)
[2017-12-18] MEDS: SILVER SULFADIAZINE 1 % TOPICAL CREAM 50GM TOP SCH ×2 (13:27→21:53)
[2017-12-18 14:25] LABS: Hematocrit 25.6 % (41.0-53.0); Hemoglobin 8.3 g/dL (13.5-17.5)
[2017-12-18 17:00] VITALS: BP 83/50
[2017-12-18 22:00] VITALS: BP 109/65
[2017-12-19 05:00] VITALS: BP 111/67
[2017-12-19] MEDS: InsuLIN REG 1unit/0.01ml Soln (100units/ml) SC SCH ×4 (06:02→21:03)
[2017-12-19] MEDS: ceFAZolin 1GM/50ML 50 ML IV SCH ×3 (06:02→18:00)
[2017-12-19] MEDS: ACCU-CHEK COMFORT CURVE STRIP VI SCH ×4 (06:02→21:04)
[2017-12-19 06:43] LABS: Basophils # (auto) 0.1 uL; Basophils % (auto) 0.5 % (0.0-2.0); Monocytes # (auto) 0.5 uL; Monocytes % (auto) 4.2 % (0.0-12.0)
[2017-12-19 06:50] LABS: Eosinophils # (auto) 0.1 uL; Eosinophils % (auto) 1.1 % (0.0-7.0); Hematocrit 25.4 % (41.0-53.0); Hemoglobin 8.6 g/dL (13.5-17.5); Lymphocytes % (auto) 8.4 % (10.0-50.0); Mean Corpuscular Hemoglobin 32.1 pg (28.0-32.0); Mean Corpuscular Hgb Conc. 33.9 g/dL (32.0-36.0); Mean Corpuscular Volume 94.6 fL (80.0-100.0); Neutrophils # (auto) 9.8 uL; Neutrophils % (auto) 85.8 % (37.0-80.0); Nucleated Red Blood Cells % 0.1 %; Platelet Count (auto) 581 10^3/uL (140-450); Red Blood Cells 2.69 10^6/uL (4.5-5.90); Red Cell Distribution Width 15.7 % (11.8-14.3); White Blood Cell 11.4 10^3/uL (4.4-10.8)
[2017-12-19 06:52] LABS: Calcium 9.4 mg/dL (8.5-10.1); Potassium 4.5 mmol/L (3.5-5.1)
[2017-12-19 09:00] VITALS: BP 108/67
[2017-12-19] MEDS: ZINC SULFATE 220mg CAP or TAB PO SCH (10:47)
[2017-12-19] MEDS: METOPROLOL TARTRATE 25 MG TAB PO SCH ×2 (10:47→22:00)
[2017-12-19] MEDS: PARoxetine 20 MG TAB PO SCH (10:47)
[2017-12-19] MEDS: ASCORBIC ACID 500 MG TAB PO SCH (10:48)
[2017-12-19] MEDS: SILVER SULFADIAZINE 1 % TOPICAL CREAM 50GM TOP SCH ×2 (10:48→22:00)
[2017-12-19] MEDS: PANTOPRAZOLE 40 MG TAB PO SCH (10:48)
[2017-12-19] MEDS: DAKINS QUARTER STR 0.125% (NaHypochlorite) 473 ML TOPICAL SOL TOP SCH ×2 (10:48→22:00)
[2017-12-19] MEDS ORDERED: HYDROcodone-ACET 5/325MG TAB PO PRN (15:15)
[2017-12-19] MEDS ORDERED: MORPHINE SULF INJ 2 MG/ML SYRINGE 1ML IV PRN ×2 (15:15)
[2017-12-19] MEDS ORDERED: IODIXANOL 320MG/ML 100ML BTL IV ONE (16:03)
[2017-12-19] MEDS ORDERED: LIDOCAINE 2% (LOCAL ANESTH.) PF 5ml SDV ONE (16:03)
[2017-12-19] MEDS ORDERED: MIDAZOLAM HCL 1MG/1ML-2 ML VIAL ONE (16:05)
[2017-12-19] MEDS ORDERED: ANGIOMAX 250 MG VIAL IV ONE ×2 (16:05→18:40)
[2017-12-19] MEDS ORDERED: SODIUM CHL 0.9% 50 ML ONE ×2 (16:05→18:39)
[2017-12-19] MEDS ORDERED: fentaNYL CITRATE 100 MCG/2 ML VL ONE (16:05)
[2017-12-19] MEDS ORDERED: VERAPAMIL 2.5MG/ML INJ 2ML VIAL IV ONE (17:10)
[2017-12-19] MEDS: Glucerna Carbsteady SHAKE Vanilla 8oz PO SCH (18:00)
[2017-12-19] MEDS ORDERED: ASPirin 325 MG TAB ONE (18:54)
[2017-12-19] MEDS ORDERED: CLOPIDOGREL 300 MG TAB ONE (18:54)
[2017-12-19 22:00] VITALS: BP 93/53
[2017-12-19] MEDS ORDERED: DAKINS HALF STR 0.25% (NaHypochlorite) 473 ML TOPICAL SOL TOP ONE (22:00)
[2017-12-20 05:35] VITALS: BP 100/56
[2017-12-20] MEDS: InsuLIN REG 1unit/0.01ml Soln (100units/ml) SC SCH ×4 (05:46→22:32)
[2017-12-20] MEDS: ceFAZolin 1GM/50ML 50 ML IV SCH ×3 (05:46→12:26)
[2017-12-20] MEDS: ACCU-CHEK COMFORT CURVE STRIP VI SCH ×4 (05:46→22:34)
[2017-12-20 09:00] VITALS: BP 110/66
[2017-12-20] MEDS ORDERED: CLOPIDOGREL BISULFATE 75 MG TAB PO SCH (10:00)
[2017-12-20] MEDS ORDERED: ASPirin 81 mg TAB PO SCH (10:00)
[2017-12-20] MEDS ORDERED: CLOP75TA28 PO (10:25)
[2017-12-20] MEDS ORDERED: ZIN220C PO (10:25)
[2017-12-20] MEDS ORDERED: ASPI81CH43 PO (10:25)
[2017-12-20] MEDS ORDERED: ASCO500T11 PO (10:25)
[2017-12-20] MEDS: Glucerna Carbsteady SHAKE Vanilla 8oz PO SCH ×2 (10:27→18:00)
[2017-12-20] MEDS: METOPROLOL TARTRATE 25 MG TAB PO SCH ×2 (10:28→22:28)
[2017-12-20] MEDS: ASCORBIC ACID 500 MG TAB PO SCH (10:28)
[2017-12-20] MEDS: PANTOPRAZOLE 40 MG TAB PO SCH (10:28)
[2017-12-20] MEDS: PARoxetine 20 MG TAB PO SCH (10:28)
[2017-12-20] MEDS: ZINC SULFATE 220mg CAP or TAB PO SCH (10:28)
[2017-12-20] MEDS: DAKINS QUARTER STR 0.125% (NaHypochlorite) 473 ML TOPICAL SOL TOP SCH ×2 (10:31→22:28)
[2017-12-20] MEDS: SILVER SULFADIAZINE 1 % TOPICAL CREAM 50GM TOP SCH ×2 (10:31→22:34)
[2017-12-20 13:00] VITALS: BP 123/70
[2017-12-20] MEDS ORDERED: LIDOCAINE 1% (LOCAL ANESTH.) PF 5ml SDV ID ONE (13:45)
[2017-12-20] MEDS ORDERED: LORazepam 0.5 MG TAB PO PRN (14:00)
[2017-12-20] MEDS ORDERED: LEVOFLOXACIN 750MG 150 ML IV ONE (14:00)
[2017-12-20] MEDS ORDERED: TEMAZEPAM 15 MG CAP PO PRN (14:00)
[2017-12-20 17:00] VITALS: BP 108/61
[2017-12-20 17:52] VITALS: BP 123/70
[2017-12-20 21:49] VITALS: BP 121/63
[2017-12-20] MEDS ORDERED: SODIUM CHLOR 0.9% PF (SALINE LOCK) 10ML VIAL/SYR IV SCH (22:00)
== END 2017-12-20 23:41 | disposition home health service (06) | DRG 710 ==
LOC: ER 12:28 → TELE 12:29 → TELE-EAST 18:29
PROVIDERS: ADMIT Internal Medicine; ATTEND Internal Medicine
PROC: 047C3ZZ Dilation of Right Common Iliac Artery, Percutaneous Approach (ICD-10-PCS; principal; 2017-12-17)
PROC: B41G1ZZ Fluoroscopy of Left Lower Extremity Arteries using Low Osmolar Contrast (ICD-10-PCS; 2017-12-17)
PROC: B41F1ZZ Fluoroscopy of Right Lower Extremity Arteries using Low Osmolar Contrast (ICD-10-PCS; 2017-12-17)
PROC: 047 Lower Arteries, Dilation (ICD-10-PCS; 2017-12-19)
PROC: 0JBR0ZZ Excision of Left Foot Subcutaneous Tissue and Fascia, Open Approach (ICD-10-PCS; 2017-12-19)
PROC: 05HY33Z Insertion of Infusion Device into Upper Vein, Percutaneous Approach (ICD-10-PCS; 2017-12-20)
DX: A41.9 Sepsis, unspecified organism (principal); N17.0 Acute kidney failure with tubular necrosis; E43 Unspecified severe protein-calorie malnutrition; I74.5 Embolism and thrombosis of iliac artery; E11.22 Type 2 diabetes mellitus with diabetic chronic kidney disease; M86.8X7 Other osteomyelitis, ankle and foot; E11.52 Type 2 diabetes mellitus with diabetic peripheral angiopathy with gangrene; E11.621 Type 2 diabetes mellitus with foot ulcer; E11.69 Type 2 diabetes mellitus with other specified complication; E78.5 Hyperlipidemia, unspecified; F17.210 Nicotine dependence, cigarettes, uncomplicated; I13.0 Hypertensive heart and chronic kidney disease with heart failure and stage 1 through stage 4 chronic kidney disease, or unspecified chronic kidney disease; I25.10 Atherosclerotic heart disease of native coronary artery without angina pectoris; D63.8 Anemia in other chronic diseases classified elsewhere; I50.9 Heart failure, unspecified; L02.612 Cutaneous abscess of left foot; I70.0 Atherosclerosis of aorta; L03.116 Cellulitis of left lower limb; L97.529 Non-pressure chronic ulcer of other part of left foot with unspecified severity; N18.9 Chronic kidney disease, unspecified; Z83.3 Family history of diabetes mellitus; Z87.01 Personal history of pneumonia (recurrent); Z95.5 Presence of coronary angioplasty implant and graft; Z79.899 Other long term (current) drug therapy; Z68.20 Body mass index [BMI] 20.0-20.9, adult
CPT/HCPCS: 36415; 36569; 37221; 71045; 71046; 73630; 73700; 73718; 75635; 75716; 80048; 80053; 80202; 81001; 82962; 83036; 83605; 85014; 85018; 85025; 85610; 85652; 85730; 86850; 86900; 86901; 87040; 87077; 87081; 87086; 87186; 87205; 93005; 93926; 96365; 96367; 96375; 99152; 99153; A6257; C1876; J0690; J1815; J1956; J2001; J2250; J2543; J7060; Q9967

== ENCOUNTER 2018-01-28 08:35 | Inpatient (IN) | payer MEDICAID ==
[~2018-01-28] VITALS: Ht 167.6 cm; Wt 54.4 kg
[2018-01-28] MEDS: DEXTROSE 10% 1,000 ML IV SCH ×2 (01:00→12:06)
[~2018-01-28 08:35] MED LIST changes: +ASCO500T11 PO; +ASPI81CH43 PO; +CLOP75TA28 PO; +INSREG3 SUBCUT; -LEVO750T64 PO; +ZIN220C PO
[2018-01-28 09:24] LABS: Urine Bacteria NONE SEEN /hpf (None Seen); Urine Blood Negative /uL (Negative); Urine Specific Gravity 1.006 (1.001-1.035); Urine WBC 6 /hpf (0 - 3)
[2018-01-28 09:50] LABS: Basophils # (auto) 0 uL; Basophils % (auto) 0.5 % (0.0-2.0); Eosinophils # (auto) 0.1 uL; Eosinophils % (auto) 1.2 % (0.0-7.0); Hematocrit 33.3 % (41.0-53.0); Hemoglobin 11.1 g/dL (13.5-17.5); Lymphocytes # (auto) 0.5 uL; Lymphocytes % (auto) 7.5 % (10.0-50.0); Mean Corpuscular Hemoglobin 31.2 pg (28.0-32.0); Mean Corpuscular Hgb Conc. 33.4 g/dL (32.0-36.0); Mean Corpuscular Volume 93.5 fL (80.0-100.0); Monocytes # (auto) 0.4 uL; Monocytes % (auto) 5.8 % (0.0-12.0); Platelet Count (auto) 422 10^3/uL (140-450); Red Blood Cells 3.56 10^6/uL (4.5-5.90); White Blood Cell 7.1 10^3/uL (4.4-10.8)
[2018-01-28 09:56] LABS: Red Cell Distribution Width 23.3 % (11.8-14.3)
[2018-01-28 10:05] LABS: Albumin 2.8 g/dL (3.4-5.0); Calcium 7.6 mg/dL (8.5-10.1); Magnesium 1.8 mg/dL (1.6-2.6); Potassium 3.2 mmol/L (3.5-5.1)
[2018-01-28 10:12] LABS: Bilirubin, Total 0.4 mg/dL (0.2-1.0); Total Protein 7.1 g/dL (6.4-8.2)
[2018-01-28] MEDS ORDERED: PIPERACILLIN-TAZOB 3.375GM 100 ML IV ONE (10:15)
[2018-01-28] MEDS ORDERED: LISINOPRIL 5 MG TAB PO ONE (12:00)
[2018-01-28] MEDS ORDERED: LORazepam 2MG/ML-1ML VIAL IV PRN (12:00)
[2018-01-28] MEDS ORDERED: METOPROLOL TARTRATE 25 MG TAB PO ONE (12:00)
[2018-01-28] MEDS ORDERED: ONDANSETRON HCL 4 MG/2 ML VIAL IV PRN (12:00)
[2018-01-28] MEDS ORDERED: PARoxetine 20 MG TAB PO ONE (12:00)
[2018-01-28] MEDS ORDERED: ASCORBIC ACID 500 MG TAB PO ONE (12:00)
[2018-01-28] MEDS ORDERED: MORPHINE SULFATE 4 MG/ML SYR/VIAL IV PRN ×2 (12:00)
[2018-01-28] MEDS ORDERED: PANTOPRAZOLE 40 MG TAB PO ONE (12:00)
[2018-01-28] MEDS ORDERED: DOCUSATE SOD 100 MG CAP PO PRN (12:00)
[2018-01-28] MEDS ORDERED: CLOPIDOGREL BISULFATE 75 MG TAB PO ONE (12:00)
[2018-01-28] MEDS ORDERED: ACETAMINOPHEN 325 MG TAB PO PRN (12:00)
[2018-01-28] MEDS ORDERED: NITROGLYCERIN 0.4 MG SL TAB SL PRN (12:00)
[2018-01-28] MEDS ORDERED: NICOTINE 21MG/24 HR TOPICAL PATCH TD ONE (12:00)
[2018-01-28] MEDS ORDERED: ASPirin-EC 81 mg tab PO ONE (12:00)
[2018-01-28] MEDS ORDERED: ZINC SULFATE 220mg CAP or TAB PO ONE (12:00)
[2018-01-28] MEDS: Glucerna Carbsteady SHAKE Vanilla 8oz PO SCH ×3 (13:22→22:00)
[2018-01-28] MEDS: CLINDAMYCIN 300MG IV 50 ML IV SCH ×2 (13:27→22:00)
[2018-01-28 13:50] LABS: BUN/Creatinine Ratio 7.3
[2018-01-28] MEDS: HYDROcodone-ACET 5/325MG TAB PO PRN (16:05)
[2018-01-28] MEDS ORDERED: LABETALOL HCL 5 MG/ML ML 20ML VIAL IV PRN (17:00)
[2018-01-28 17:10] LABS: Lactic Acid w/Reflex 2.6 mmol/L (0.4-2.0)
[2018-01-28] MEDS: FERROUS SULFATE 325 MG TAB PO SCH (18:00)
[2018-01-28 18:30] VITALS: BP 91/62
[2018-01-28 20:00] VITALS: BP 127/78
[2018-01-28] MEDS: PIPERACILLIN-TAZOB 3.375GM 100 ML IV SCH (20:00)
[2018-01-28 21:00] VITALS: BP 127/78
[2018-01-28] MEDS: METOPROLOL TARTRATE 25 MG TAB PO SCH (22:00)
[2018-01-28] MEDS: ATORVASTATIN 20 MG TAB PO SCH (22:00)
[2018-01-28] MEDS: ASCORBIC ACID 500 MG TAB PO SCH (22:00)
[2018-01-28] MEDS: FAMOTIDINE 20 MG TAB PO SCH (22:00)
[2018-01-28] MEDS ORDERED: ASCORBIC ACID 500 MG TAB PO SCH (22:00)
[2018-01-29] MEDS: PIPERACILLIN-TAZOB 3.375GM 100 ML IV SCH ×4 (01:00→18:00)
[2018-01-29] MEDS: HYDROcodone-ACET 5/325MG TAB PO PRN (02:09)
[2018-01-29 05:13] LABS: Basophils # (auto) 0 uL; Basophils % (auto) 0.5 % (0.0-2.0); Eosinophils # (auto) 0.2 uL; Eosinophils % (auto) 2.1 % (0.0-7.0); Hematocrit 29.6 % (41.0-53.0); Hemoglobin 10.3 g/dL (13.5-17.5); Lymphocytes # (auto) 0.9 uL; Lymphocytes % (auto) 10.8 % (10.0-50.0); Mean Corpuscular Hemoglobin 32.5 pg (28.0-32.0); Mean Corpuscular Hgb Conc. 34.7 g/dL (32.0-36.0); Mean Corpuscular Volume 93.6 fL (80.0-100.0); Monocytes # (auto) 0.4 uL; Monocytes % (auto) 5.4 % (0.0-12.0); Neutrophils # (auto) 6.7 uL; Neutrophils % (auto) 81.2 % (37.0-80.0); Platelet Count (auto) 425 10^3/uL (140-450); Red Blood Cells 3.16 10^6/uL (4.5-5.90); White Blood Cell 8.2 10^3/uL (4.4-10.8)
[2018-01-29 05:19] LABS: Red Cell Distribution Width 23.2 % (11.8-14.3)
[2018-01-29 05:30] LABS: Albumin 2.3 g/dL (3.4-5.0); Calcium 6.9 mg/dL (8.5-10.1); Potassium 3.3 mmol/L (3.5-5.1)
[2018-01-29 05:31] LABS: BUN/Creatinine Ratio 7.1
[2018-01-29 05:34] LABS: Bilirubin, Total 0.7 mg/dL (0.2-1.0); Total Protein 6.1 g/dL (6.4-8.2)
[2018-01-29 06:00] VITALS: BP 121/75
[2018-01-29] MEDS: CLINDAMYCIN 300MG IV 50 ML IV SCH ×3 (06:00→21:32)
[2018-01-29] MEDS: Glucerna Carbsteady SHAKE Vanilla 8oz PO SCH ×4 (06:00→21:33)
[2018-01-29 08:00] VITALS: BP 125/69
[2018-01-29] MEDS ORDERED: DEXTROSE (50%) 50ML SYRG IV ONE (08:30)
[2018-01-29] MEDS: ACCU-CHEK COMFORT CURVE STRIP VI SCH ×4 (08:34→23:57)
[2018-01-29] MEDS: FERROUS SULFATE 325 MG TAB PO SCH ×2 (08:34→18:00)
[2018-01-29] MEDS: DEXTROSE 10% 1,000 ML IV SCH (08:38)
[2018-01-29] MEDS: ZINC SULFATE 220mg CAP or TAB PO SCH (09:51)
[2018-01-29] MEDS: PANTOPRAZOLE 40 MG TAB PO SCH (09:51)
[2018-01-29] MEDS: ASCORBIC ACID 500 MG TAB PO SCH ×2 (09:51→21:33)
[2018-01-29] MEDS: ASPirin-EC 81 mg tab PO SCH (09:52)
[2018-01-29] MEDS: PARoxetine 20 MG TAB PO SCH (09:52)
[2018-01-29] MEDS: MULTIPLE VITAMIN TAB PO SCH (09:52)
[2018-01-29] MEDS: CLOPIDOGREL BISULFATE 75 MG TAB PO SCH (09:52)
[2018-01-29] MEDS: NICOTINE 21MG/24 HR TOPICAL PATCH TD SCH (09:54)
[2018-01-29] MEDS: LISINOPRIL 5 MG TAB PO SCH (09:54)
[2018-01-29] MEDS: METOPROLOL TARTRATE 25 MG TAB PO SCH ×2 (09:54→21:33)
[2018-01-29] MEDS ORDERED: ZINC SULFATE 220mg CAP or TAB PO SCH (10:00)
[2018-01-29] MEDS ORDERED: ASCORBIC ACID 500 MG TAB PO SCH (10:00)
[2018-01-29] MEDS: FAMOTIDINE 20 MG TAB PO SCH ×2 (10:00→21:33)
[2018-01-29 12:00] VITALS: BP 120/79
[2018-01-29 15:54] VITALS: BP 153/72
[2018-01-29] MEDS ORDERED: DEXTROSE (50%) 50ML SYRG IV PRN (19:30)
[2018-01-29 19:55] VITALS: BP 91/58
[2018-01-29] MEDS: InsuLIN REG 1unit/0.01ml Soln (100units/ml) SC SCH (20:00)
[2018-01-29] MEDS: ATORVASTATIN 20 MG TAB PO SCH (21:33)
[2018-01-29 22:00] VITALS: BP 123/73
[2018-01-30] MEDS: PIPERACILLIN-TAZOB 3.375GM 100 ML IV SCH ×3 (00:19→12:30)
[2018-01-30] MEDS: InsuLIN REG 1unit/0.01ml Soln (100units/ml) SC SCH ×5 (04:00→17:21)
[2018-01-30] MEDS: ACCU-CHEK COMFORT CURVE STRIP VI SCH ×4 (04:20→17:06)
[2018-01-30 05:00] VITALS: BP 126/73
[2018-01-30] MEDS: CLINDAMYCIN 300MG IV 50 ML IV SCH ×2 (05:00→14:00)
[2018-01-30] MEDS: Glucerna Carbsteady SHAKE Vanilla 8oz PO SCH ×2 (06:14→12:00)
[2018-01-30] MEDS: FERROUS SULFATE 325 MG TAB PO SCH (08:00)
[2018-01-30 09:00] VITALS: BP 109/71
[2018-01-30] MEDS: FAMOTIDINE 20 MG TAB PO SCH (10:00)
[2018-01-30] MEDS: ASPirin-EC 81 mg tab PO SCH (10:00)
[2018-01-30] MEDS: METOPROLOL TARTRATE 25 MG TAB PO SCH (10:00)
[2018-01-30] MEDS: PARoxetine 20 MG TAB PO SCH (10:00)
[2018-01-30] MEDS: ZINC SULFATE 220mg CAP or TAB PO SCH (10:00)
[2018-01-30] MEDS: LISINOPRIL 5 MG TAB PO SCH (10:00)
[2018-01-30] MEDS: ASCORBIC ACID 500 MG TAB PO SCH (10:00)
[2018-01-30] MEDS: NICOTINE 21MG/24 HR TOPICAL PATCH TD SCH (10:00)
[2018-01-30] MEDS: PANTOPRAZOLE 40 MG TAB PO SCH (10:00)
[2018-01-30] MEDS: CLOPIDOGREL BISULFATE 75 MG TAB PO SCH (10:00)
[2018-01-30] MEDS: MULTIPLE VITAMIN TAB PO SCH (10:00)
[2018-01-30 13:00] VITALS: BP 105/63
[2018-01-30 14:30] LABS: Basophils # (auto) 0.1 uL; Basophils % (auto) 1.2 % (0.0-2.0); Eosinophils # (auto) 0.1 uL; Eosinophils % (auto) 2.1 % (0.0-7.0); Hematocrit 34.8 % (41.0-53.0); Hemoglobin 11.5 g/dL (13.5-17.5); Lymphocytes # (auto) 1.1 uL; Lymphocytes % (auto) 15.9 % (10.0-50.0); Mean Corpuscular Hemoglobin 31.2 pg (28.0-32.0); Mean Corpuscular Hgb Conc. 33.1 g/dL (32.0-36.0); Mean Corpuscular Volume 94.4 fL (80.0-100.0); Monocytes # (auto) 0.6 uL; Monocytes % (auto) 8.1 % (0.0-12.0); Neutrophils % (auto) 72.7 % (37.0-80.0); Platelet Count (auto) 437 10^3/uL (140-450); Red Blood Cells 3.69 10^6/uL (4.5-5.90); White Blood Cell 6.9 10^3/uL (4.4-10.8)
[2018-01-30 14:33] LABS: Red Cell Distribution Width 22.9 % (11.8-14.3)
[2018-01-30 14:47] LABS: Albumin 2.6 g/dL (3.4-5.0); BUN/Creatinine Ratio 11.5; Calcium 7.3 mg/dL (8.5-10.1)
[2018-01-30 14:48] LABS: Bilirubin, Total 0.3 mg/dL (0.2-1.0); Total Protein 6.9 g/dL (6.4-8.2)
[2018-01-30 17:00] VITALS: BP 110/67
== END 2018-01-30 18:00 | disposition home or self-care (01) | DRG 380 ==
LOC: ER 08:35 → EDBD 08:35 → TELE 08:36 → DOU IN ICU 18:32 → TELE-EAST 01-29 22:03
PROVIDERS: ADMIT Internal Medicine; ATTEND Internal Medicine
PROC: 02HV33Z Insertion of Infusion Device into Superior Vena Cava, Percutaneous Approach (ICD-10-PCS; principal; 2018-01-28)
DX: E11.649 Type 2 diabetes mellitus with hypoglycemia without coma (principal); L97.529 Non-pressure chronic ulcer of other part of left foot with unspecified severity; G93.41 Metabolic encephalopathy; E44.0 Moderate protein-calorie malnutrition; E11.621 Type 2 diabetes mellitus with foot ulcer; E11.21 Type 2 diabetes mellitus with diabetic nephropathy; E11.51 Type 2 diabetes mellitus with diabetic peripheral angiopathy without gangrene; E83.51 Hypocalcemia; I25.10 Atherosclerotic heart disease of native coronary artery without angina pectoris; E87.6 Hypokalemia; I12.9 Hypertensive chronic kidney disease with stage 1 through stage 4 chronic kidney disease, or unspecified chronic kidney disease; E11.65 Type 2 diabetes mellitus with hyperglycemia; L03.032 Cellulitis of left toe; D63.8 Anemia in other chronic diseases classified elsewhere; E78.5 Hyperlipidemia, unspecified; F17.210 Nicotine dependence, cigarettes, uncomplicated; I70.201 Unspecified atherosclerosis of native arteries of extremities, right leg; N18.2 Chronic kidney disease, stage 2 (mild); Z98.61 Coronary angioplasty status; I25.2 Old myocardial infarction; Z79.82 Long term (current) use of aspirin; Z83.3 Family history of diabetes mellitus; Z86.73 Personal history of transient ischemic attack (TIA), and cerebral infarction without residual deficits; Z89.429 Acquired absence of other toe(s), unspecified side; Z95.1 Presence of aortocoronary bypass graft; Z79.899 Other long term (current) drug therapy; Z68.1 Body mass index [BMI] 19.9 or less, adult
CPT/HCPCS: 36415; 71045; 73700; 80053; 81001; 82962; 83036; 83605; 83735; 83880; 84443; 84484; 85025; 87040; 87081; 93005; 93926; 94761; 96365; 96366; 96375; A6257; J1815; J2543; J3490

== ENCOUNTER → 2018-06-13 | Outpatient (CLI) | payer MEDICAID ==
[~2018-06-13] MED LIST changes: +DOX100T PO; +FLUC200T35 PO; -GLIM4TAB42 PO; +LEVO500T21 PO; -METF-370 PO; +SACC250C PO
== END | disposition home or self-care (01) ==
LOC: Rad HDHVI 15:42
PROVIDERS: ATTEND Internal Medicine Cardiovascular Disease
DX: I10 Essential (primary) hypertension (principal); R07.89 Other chest pain
CPT/HCPCS: 93306

== ENCOUNTER → 2018-06-17 | Outpatient (CLI) | payer MEDICAID ==
[2018-06-17 16:00] VITALS: BP_SYST 113; BP_SYST 140; BP_DIAS 66; BP_DIAS 77
--- NOTE | 2018-06-17 16:00 | NUR ---
CHF PT PRESENTED TO [facility] STITCHES TO LEFT LATERAL FOOT IMBEDDED. CLEANSED SITE AND REMOVED 6 STITCHES PER MD ORDER. STITCHES STILL PRESENT ON TOP OF LEFT FOOT, WOUND CARE NURSE TO UPDATE REGARDING PROCEDURE TO LEFT FOOT, WILL CALL OF PATIENT TOMORROW FOR FURTHER INSTRUCTIONS. DRESSED FOOT WITH GUAZE, PT TOLERATED WELL
--- NOTE | 2018-06-17 16:30 | NUR ---
Wound Care Wound care provided per MD order. Patient tolerated well and verbalized dressing care instructions. Follow up in clinic as directed. See e-MAR for medications given during this visit.
[2018-06-17 16:48] VITALS: BP 113/66
--- NOTE | 2018-06-17 16:48 | NUR ---
Discharge Instructions See e-MAR for any mediations given with this visit. Patient education given on disease process. Patient verbalized understanding. Previous labs reviewed. Patient discharged in stable condition with after care instructions and follow up appointment.
== END | disposition home or self-care (01) ==
LOC: CHF HDHVI 14:27
PROVIDERS: ATTEND Internal Medicine Cardiovascular Disease
DX: I73.9 Peripheral vascular disease, unspecified (principal); Z89.9 Acquired absence of limb, unspecified; M86.9 Osteomyelitis, unspecified
CPT/HCPCS: G0463

== ENCOUNTER 2018-07-10 09:33 | Emergency (ER) | payer MEDICAID ==
[2018-07-10 10:50] LABS: Basophils # (auto) 0 uL; Monocytes # (auto) 0.6 uL
[2018-07-10 10:51] LABS: Basophils % (auto) 0.5 % (0.0-2.0); Eosinophils # (auto) 0.2 uL; Eosinophils % (auto) 1.6 % (0.0-7.0); Hematocrit 34.1 % (41.0-53.0); Hemoglobin 11.5 g/dL (13.5-17.5); Lymphocytes # (auto) 1.3 uL; Lymphocytes % (auto) 12.3 % (10.0-50.0); Mean Corpuscular Hemoglobin 34.4 pg (28.0-32.0); Mean Corpuscular Hgb Conc. 33.9 g/dL (32.0-36.0); Mean Corpuscular Volume 101.5 fL (80.0-100.0); Monocytes % (auto) 6.2 % (0.0-12.0); Neutrophils # (auto) 8.1 uL; Neutrophils % (auto) 79.4 % (37.0-80.0); Nucleated Red Blood Cells % 0.1 %; Platelet Count (auto) 328 10^3/uL (140-450); Red Blood Cells 3.36 10^6/uL (4.5-5.90); Red Cell Distribution Width 12.8 % (11.8-14.3); White Blood Cell 10.2 10^3/uL (4.4-10.8)
[2018-07-10 11:09] LABS: Albumin 3.2 g/dL (3.4-5.0); Calcium 9.1 mg/dL (8.5-10.1); Potassium 4.9 mmol/L (3.5-5.1)
[2018-07-10 11:12] LABS: BUN/Creatinine Ratio 31.7; Bilirubin, Total 0.3 mg/dL (0.2-1.0); Total Protein 7.4 g/dL (6.4-8.2)
[2018-07-10] MEDS ORDERED: SODIUM CHLORIDE 0.9% 1,000 ML IV ONE ×2 (11:40)
[2018-07-10 12:22] LABS: INR 0.95 (0.9-1.15); Prothrombin Time 10.2 sec (9.27-12.13)
[2018-07-10] MEDS ORDERED: PIPERACILLIN-TAZOB 3.375GM 100 ML IV ONE (15:15)
[2018-07-10 17:44] VITALS: BP 132/60
[2018-07-17] MEDS ORDERED: SIMV10TA84 PO (05:36)
[2018-07-17] MEDS ORDERED: GLIP-115 PO (05:36)
[2018-07-17] MEDS ORDERED: LISI10TA6 PO (05:36)
[2018-07-17] MEDS ORDERED: METF-370 PO (05:36)
[2018-07-17] MEDS ORDERED: CLAR500T PO (05:36)
[2018-07-17] MEDS ORDERED: DONE5TAB11 PO (05:36)
== END 2018-07-10 18:09 | disposition short-term general hospital (02) ==
LOC: EDBD 09:33 → ER 09:34
DX: I63.9 Cerebral infarction, unspecified (principal); N39.0 Urinary tract infection, site not specified; R62.7 Adult failure to thrive; R41.82 Altered mental status, unspecified; E11.9 Type 2 diabetes mellitus without complications; E78.5 Hyperlipidemia, unspecified; I10 Essential (primary) hypertension; I25.2 Old myocardial infarction; F17.210 Nicotine dependence, cigarettes, uncomplicated; J02.9 Acute pharyngitis, unspecified; Z79.899 Other long term (current) drug therapy; Z98.61 Coronary angioplasty status
CPT/HCPCS: 36415; 51702; 70450; 71045; 74176; 80053; 83605; 83880; 84484; 85025; 85610; 85730; 87086; 93005; 96365; 99285; J2543; J7030